=== PATIENT | female | born 1935 ===

== ENCOUNTER → 2016-08-11 | Outpatient (CLI) | payer MEDICARE, BC ==
--- NOTE | 2016-08-12 08:10 | BD ---
EXAMINATION TYPE: MG DEXA axial skeleton. DATE OF EXAM: 08/11/2016 COMPARISON: NONE CLINICAL HISTORY: Height: 60 IN Weight: 158 LBS FRAX RISK QUESTIONS: Alcohol (3 or more units per day): NO Family History (Parent hip fracture): NO Glucocorticoids (More than 3mos): NO (Ex: prednisone, prednisolone, methylprednisolone, dexamethasone, and hydrocortisone). History of Fracture in Adulthood: NO Secondary Osteoporosis: 1. Type 1 Diabetes: NO 2. Hyperthyroidism: NO 3. Menopause before 45: NO 4. Malnutrition: NO 5. Chronic liver disease: NO Rheumatoid Arthritis: NO Current Tobacco Use: NO RISK FACTORS HISTORY OF: Surgery to Hip(right): YES When: AGE 76 Active: YES Postmenopausal woman: AGE 48 Take estrogen and/or progesterone medications: NOT NOW How long: AGE 56-66 MEDICATIONS: Additional Medications: VIT CALCIUM, PREVACID, BABY ASPIRIN, BLOOD PRESSURE MEDS, CHOLESTEROL MEDS EXAM MEASUREMENTS: Bone mineral densitometry was performed using the [facility]. Bone mineral density as measured about the Lumbar spine is: ----- L1-L4(G/cm2): 1.185 T Score Values are as follows: ----- L2: 0.6 ----- L3: -0.4 ----- L4: -0.1 ----- L1-L4: 0.0 Bone mineral density has: Increased 3.5% since study of: 10/09/2009 PT HAD RT HIP REPLACEMENT AT AGE 76 Bone mineral density about the L hip (g/cm2): 0.896 T Score values are as follows: -----L Neck: -1.0 -----L Total: 0.0 Bone mineral density has: Increased 0.4% since study of: 10/09/2009 IMPRESSION: Normal (Values between +1 and -1 indicate normal bone mass). Consider repeating this study in 5 year s or sooner if there is some new clinical indication. Bone density within the lumbar spine is improved 3.5% from the comparison of 10/09/2009. Bone density within the left hip has improved 0.4% from the comparison of 2009 NOTE: T-SCORE=SD OF THE YOUNG ADULT MEAN.
--- NOTE | 2016-08-12 11:18 | MM ---
Reason for exam: screening (asymptomatic). Last mammogram was performed 1 year and 1 month ago. History: Patient is postmenopausal. Family history of breast cancer in mother at age 69. Took estrogen for 10 years beginning at age 57. Took progesterone for 10 years beginning at age 57. Physical Findings: A clinical breast exam by your physician is recommended on an annual basis and results should be correlated with mammographic findings. MG 3D Screening Mammo W/Cad Bilateral CC and MLO view(s) were taken. Prior study comparison: July 23, 2015, bilateral MG 3d screening mammo w/cad. There are scattered fibroglandular densities. No significant changes when compared with prior studies. ASSESSMENT: Benign, BI-RAD 2 RECOMMENDATION: Routine screening mammogram of both breasts in 1 year.
== END | disposition home or self-care (01) ==
LOC: RADMAMWWP 15:11
PROVIDERS: ATTEND Family Medicine
DX: Z12.31 Encounter for screening mammogram for malignant neoplasm of breast (principal); Z13.820 Encounter for screening for osteoporosis
CPT/HCPCS: 77080; 77063; G0202

== ENCOUNTER 2018-07-06 21:28 | Inpatient (IN) | payer BC, MEDICARE ==
[2018-07-06] MEDS ORDERED: IPRATROPIUM-ALBUTEROL 3 ML NEB INHALATION STA (22:14)
--- NOTE | 2018-07-06 22:19 | ED ---
URI HPI - General Chief Complaint: Upper Respiratory Infection Stated Complaint: SOB Time Seen by Provider: 07/06/18 21:54 Source: patient Mode of arrival: ambulatory - History of Present Illness Initial Comments: This patient is an 83-year-old woman who presents with complaint of having cough that is been going on for approximately one week. Patient states she started with some upper symptoms, including congestion and rhinorrhea. She also developed a nonproductive cough. Patient states she was seen in the clinic and started on amoxicillin. She did not have any improvement and therefore was seen in urgent care Wednesday, where they prescribed doxycycline and steroid. The patient has completed 24 hours of that without significant improvement in her condition. Patient has not had fever or chills. She is not having chest pain. There has only been some mild shortness of breath. Cough remains nonproductive. No change in urination. No leg pain or swelling. Patient denies history of COPD but she did have many years of secondhand smoke exposure. MD Complaint: cough, rhinorrhea Onset/Timin -: week(s) Consistency: constant Improves With: nothing Worsens With: nothing Associated Symptoms: rhinorrhea, cough, shortness of breath Treatments Prior to Arrival: "cold medicine", antibiotics - Related Data Home Medications Medication Instructions Recorded Confirmed Aspirin 81 mg PO DAILY 07/24/13 07/06/18 Atenolol 12.5 mg PO DAILY 07/24/13 07/06/18 Enalapril Maleate 2.5 mg PO DAILY 07/24/13 07/06/18 Lansoprazole 30 mg PO DAILY 07/24/13 07/06/18 Atorvastatin [Lipitor] 20 mg PO HS 08/13/15 07/06/18 Ascorbic Acid [Vitamin C with Elizabeth 100 mg PO DAILY 07/06/18 07/06/18 Hips] Benzonatate [Tessalon Perles] 100 mg PO TID 07/06/18 07/06/18 Calcium Carbonate/Vitamin D3 1 tab PO BID 07/06/18 07/06/18 [Calcium 500-Vit D3 200 Tablet] Doxycycline Hyclate [Vibramycin] 100 mg PO BID 07/06/18 07/06/18 Turmeric Root Extract [Turmeric] 1,053 mg PO DAILY 07/06/18 07/06/18 Zinc 50 mg PO DAILY 07/06/18 07/06/18 predniSONE 20 mg PO BID 07/06/18 07/06/18 Allergies Allergy/AdvReac Type Severity Reaction Status Date / Time nickel Allergy Rash/Hives Verified 07/06/18 21:53 Review of Systems ROS Statement: Those systems with pertinent positive or pertinent negative responses have been documented in the HPI. ROS Other: All systems not noted in ROS Statement are negative. Constitutional: Denies: fever, chills, weakness Respiratory: Reports: cough, dyspnea. Denies: hemoptysis Cardiovascular: Denies: chest pain, palpitations, dyspnea on exertion, orthopnea Gastrointestinal: Denies: abdominal pain, vomiting, diarrhea Genitourinary: Denies: dysuria, hematuria Musculoskeletal: Denies: back pain Skin: Denies: rash Neurological: Denies: headache, weakness, numbness Past Medical History Past Medical History: Diabetes Mellitus, Hyperlipidemia, Hypertension, Rick cardial Infarction ([place]) Additional Past Medical History / Comment(s): sinusitis History of Any Multi-Drug Resistant Organisms: None Reported Past Surgical History: Appendectomy, Hysterectomy, Orthopedic Surgery Additional Past Surgical History / Comment(s): right hip replacement Past Psychological History: No Psychological Hx Reported Past Alcohol Use History: Occasional - Past Family History Mother Family Medical History: Cancer Additional Family Medical History / Comment(s): breast Father Family Medical History: Asthma General Exam General appearance: alert, in no apparent distress Head exam: Present: atraumatic, normocephalic Eye exam: Present: normal appearance. Absent: scleral icterus, conjunctival injection ENT exam: Present: normal oropharynx Neck exam: Present: normal inspection Respiratory exam: Present: wheezes, other (Patient with frequent nonproductive cough during exam.). Absent: respiratory distress, rales, rhonchi, stridor, accessory muscle use, decreased breath sounds, prolonged expiratory Cardiovascular Exam: Present: regular rate, normal rhythm, normal heart sounds. Absent: systolic murmur, diastolic murmur, rubs, gallop GI/Abdominal exam: Present: soft. Absent: distended, tenderness, guarding, rebound, rigid, mass Extremities exam: Present: normal inspection, normal capillary refill. Absent: pedal edema, calf tenderness Back exam: Present: normal inspection Neurological exam: Present: alert Skin exam: Present: warm, dry, intact, normal color. Absent: rash Course Vital Signs 07/06/18 07/06/18 07/06/18 21:29 22:00 22:10 Temperature 98.1 F Pulse Rate 79 Respiratory 18 Rate Blood Pressure 155/87 174/79 O2 Sat by Pulse 96 96 96 Oximetry 07/06/18 07/06/18 07/06/18 23:00 23:04 23:10 Temperature Pulse Rate 63 Respiratory Rate Blood Pressure 157/66 146/67 O2 Sat by Pulse 92 L 99 Oximetry 07/06/18 07/06/18 07/06/18 23:11 23:20 23:40 Temperature Pulse Rate 63 Respiratory Rate Blood Pressure 144/76 150/71 O2 Sat by Pulse 92 L 90 L Oximetry 07/06/18 07/07/18 07/07/18 23:50 00:10 00:20 Temperature Pulse Rate 85 Respiratory 18 Rate Blood Pressure 147/65 145/75 161/81 O2 Sat by Pulse 98 86 L 93 L Oximetry 07/07/18 07/07/18 07/07/18 00:28 00:29 00:40 Temperature Pulse Rate 85 Respiratory Rate Blood Pressure 161/81 161/76 O2 Sat by Pulse 100 90 L Oximetry 07/07/18 07/07/18 01:00 01:10 Temperature Pulse Rate Respiratory Rate Blood Pressure 161/76 138/78 O2 Sat by Pulse 89 L 95 Oximetry Medical Decision Making - Medical Decision Making Patient is an 83-year-old woman presenting with cough and wheezing as well as some intermittent dyspnea. Clinically patient does appear to have bronchitis and there x-ray findings supportive of this. She does receive a number of nebulized treatments in the emergency department with some improvement though still having wheeze and some dyspnea. Will admit patient for further treatment of bronchitis with failed outpatient treatment. Subsequent additional history does reveal that patient has had some intermittent cough incontinence and a little bit of dysuria. The urinalysis reveals 12 white cells and will culture this to see if this represents infection versus white cells from the surface of the skin. - Lab Data Result diagrams: 07/09/18 08:40 07/09/18 08:40 Lab Results 07/06/18 07/06/18 07/06/18 Range/Units 22:49 22:49 22:49 WBC 8.7 (3.8-10.6) k/uL RBC 4.83 (3.80-5.40) m/uL Hgb 12.4 (11.4-16.0) gm/dL Hct 39.0 (34.0-46.0) % MCV 80.7 (80.0-100.0) fL MCH 25.6 (25.0-35.0) pg MCHC 31.7 (31.0-37.0) g/dL RDW 13.6 (11.5-15.5) % Plt Count 267 (150-450) k/uL Neutrophils % 85 % Lymphocytes % 10 % Monocytes % 4 % Eosinophils % 0 % Basophils % 0 % Neutrophils # 7.4 (1.3-7.7) k/uL Lymphocytes # 0.9 L (1.0-4.8) k/uL Monocytes # 0.3 (0-1.0) k/uL Eosinophils # 0.0 (0-0.7) k/uL Basophils # 0.0 (0-0.2) k/uL Sodium 134 L (137-145) mmol/L Potassium 3.4 L (3.5-5.1) mmol/L Chloride 99 (98-107) mmol/L Carbon Dioxide 23 (22-30) mmol/L Anion Gap 12 mmol/L BUN 21 H (7-17) mg/dL Creatinine 0.68 (0.52-1.04) mg/dL Est GFR (CKD-EPI)AfAm >90 (>60 ml/min/1.73 sqM) Est GFR (CKD-EPI)NonAf 82 (>60 ml/min/1.73 sqM) Glucose 411 H (74-99) mg/dL POC Glucose (mg/dL) (75-99) mg/dL POC Glu Bun Icer ID Calcium 9.8 (8.4-10.2) mg/dL Magnesium 1.6 (1.6-2.3) mg/dL Total Bilirubin 0.3 (0.2-1.3) mg/dL AST 22 (14-36) U/L ALT 21 (9-52) U/L Alkaline Phosphatase 182 H (38-126) U/L Troponin I (0.000-0.034) ng/mL NT-Pro-B Natriuret Pep pg/mL Total Protein 6.5 (6.3-8.2) g/dL Albumin 3.9 (3.5-5.0) g/dL Urine Color Urine Appearance (Clear) Urine pH (5.0-8.0) Ur Specific [place] (1.001-1.035) Urine Protein (Negative) Urine Glucose (UA) (Negative) Urine Ketones (Negative) Urine Blood (Negative) Urine Nitrite (Negative) Urine Bilirubin (Negative) Urine Urobilinogen (<2.0) mg/dL Ur Leukocyte Esterase (Negative) Urine WBC (0-5) /hpf Urine Bacteria (None) /hpf Urine Mucus (None) /hpf Influenza Type A RNA Not Detected (Not Detectd) Influenza Type B (PCR) Not Detected (Not Detectd) 07/06/18 07/06/18 07/07/18 Range/Units 22:49 22:49 00:28 WBC (3.8-10.6) k/uL RBC (3.80-5.40) m/uL Hgb (11.4-16.0) gm/dL Hct (34.0-46.0) % MCV (80.0-100.0) fL MCH (25.0-35.0) pg MCHC (31.0-37.0) g/dL RDW (11.5-15.5) % Plt Count (150-450) k/uL Neutrophils % % Lymphocytes % % Monocytes % % Eosinophils % % Basophils % % Neutrophils # (1.3-7.7) k/uL Lymphocytes # (1.0-4.8) k/uL Monocytes # (0-1.0) k/uL Eosinophils # (0-0.7) k/uL Basophils # (0-0.2) k/uL Sodium (137-145) mmol/L Potassium (3.5-5.1) mmol/L Chloride (98-107) mmol/L Carbon Dioxide (22-30) mmol/L Anion Gap mmol/L BUN (7-17) mg/dL Creatinine (0.52-1.04) mg/dL Est GFR (CKD-EPI)AfAm (>60 ml/min/1.73 sqM) Est GFR (CKD-EPI)NonAf (>60 ml/min/1.73 sqM) Glucose (74-99) mg/dL POC Glucose (mg/dL) (75-99) mg/dL POC Glu Bun Icer ID Calcium (8.4-10.2) mg/dL Magnesium (1.6-2.3) mg/dL Total Bilirubin (0.2-1.3) mg/dL AST (14-36) U/L ALT (9-52) U/L Alkaline Phosphatase (38-126) U/L Troponin I <0.012 (0.000-0.034) ng/mL NT-Pro-B Natriuret Pep 799 pg/mL Total Protein (6.3-8.2) g/dL Albumin (3.5-5.0) g/dL Urine Color Colorless Urine Appearance Clear (Clear) Urine pH 7.0 (5.0-8.0) Ur Specific [place] 1.011 (1.001-1.035) Urine Protein Negative (Negative) Urine Glucose (UA) 4+ H (Negative) Urine Ketones Negative (Negative) Urine Blood Small H (Negative) Urine Nitrite Negative (Negative) Urine Bilirubin Negative (Negative) Urine Urobilinogen <2.0 (<2.0) mg/dL Ur Leukocyte Esterase Negative (Negative) Urine WBC 12 H (0-5) /hpf Urine Bacteria Rare H (None) /hpf Urine Mucus Rare H (None) /hpf Influenza Type A RNA (Not Detectd) Influenza Type B (PCR) (Not Detectd) 07/07/18 Range/Units 01:26 WBC (3.8-10.6) k/uL RBC (3.80-5.40) m/uL Hgb (11.4-16.0) gm/dL Hct (34.0-46.0) % MCV (80.0-100.0) fL MCH (25.0-35.0) pg MCHC (31.0-37.0) g/dL RDW (11.5-15.5) % Plt Count (150-450) k/uL Neutrophils % % Lymphocytes % % Monocytes % % Eosinophils % % Basophils % % Neutrophils # (1.3-7.7) k/uL Lymphocytes # (1.0-4.8) k/uL Monocytes # (0-1.0) k/uL Eosinophils # (0-0.7) k/uL Basophils # (0-0.2) k/uL Sodium (137-145) mmol/L Potassium (3.5-5.1) mmol/L Chloride (98-107) mmol/L Carbon Dioxide (22-30) mmol/L Anion Gap mmol/L BUN (7-17) mg/dL Creatinine (0.52-1.04) mg/dL Est GFR (CKD-EPI)AfAm (>60 ml/min/1.73 sqM) Est GFR (CKD-EPI)NonAf (>60 ml/min/1.73 sqM) Glucose (74-99) mg/dL POC Glucose (mg/dL) 335 H (75-99) mg/dL POC Glu Bun Icer ID [place] Calcium (8.4-10.2) mg/dL Magnesium (1.6-2.3) mg/dL Total Bilirubin (0.2-1.3) mg/dL AST (14-36) U/L ALT (9-52) U/L Alkaline Phosphatase (38-126) U/L Troponin I (0.000-0.034) ng/mL NT-Pro-B Natriuret Pep pg/mL Total Protein (6.3-8.2) g/dL Albumin (3.5-5.0) g/dL Urine Color Urine Appearance (Clear) Urine pH (5.0-8.0) Ur Specific [place] (1.001-1.035) Urine Protein (Negative) Urine Glucose (UA) (Negative) Urine Ketones (Negative) Urine Blood (Negative) Urine Nitrite (Negative) Urine Bilirubin (Negative) Urine Urobilinogen (<2.0) mg/dL Ur Leukocyte Esterase (Negative) Urine WBC (0-5) /hpf Urine Bacteria (None) /hpf Urine Mucus (None) /hpf Influenza Type A RNA (Not Detectd) Influenza Type B (PCR) (Not Detectd) - EKG Data -: EKG Interpreted by Me EKG shows normal: sinus rhythm, axis (Normal), intervals (Normal), QRS complexes (Normal) Rate: normal (Rate 65 bpm) Interpretation: nonspecific ST-T wave changes Disposition Clinical Impression: Bronchitis, Hyperglycemia Disposition: ADMITTED IP TO THIS HOSP Condition: Good
--- NOTE | 2018-07-06 22:49 | XR ---
History: ITS.REASON XR Reason: difficulty breathing Exam: XR CXR 2 VIEWS Comparison: 07/24/2013 FINDINGS: Increased appearance of the perihilar markings may represent bronchitis. No focal consolidation or pleural effusion. The cardiac silhouette appears within limits. The visualized osseous structures appear within limits. IMPRESSION: Increased appearance of the perihilar markings may represent bronchitis. No focal consolidation or pleural effusion.
[2018-07-06 23:16] LABS: Basophils % (A) 0 %; Eosinophils % (A) 0 %; HGB 12.4 gm/dL (11.4-16.0); Lymphocytes # (A) 0.9 k/uL (1.0-4.8); Lymphocytes % (A) 10 %; MCH 25.6 pg (25.0-35.0); MCHC 31.7 g/dL (31.0-37.0); MCV 80.7 fL (80.0-100.0); Mean Platelet Volume 7.6; Monocytes # (A) 0.3 k/uL (0-1.0); Monocytes % (A) 4 %; Neutrophils # (A) 7.4 k/uL (1.3-7.7); Neutrophils % (A) 85 %; Platelet Count 267 k/uL (150-450); RBC 4.83 m/uL (3.80-5.40); RDW 13.6 % (11.5-15.5); WBC 8.7 k/uL (3.8-10.6)
[2018-07-06 23:18] LABS: ALT 21 U/L (9-52); AST 22 U/L (14-36); Albumin 3.9 g/dL (3.5-5.0); Alkaline Phosphatase 182 U/L (38-126); Anion Gap 12 mmol/L; Blood Urea Nitrogen 21 mg/dL (7-17); Calcium 9.8 mg/dL (8.4-10.2); Carbon Dioxide 23 mmol/L (22-30); Chloride 99 mmol/L (98-107); Glucose 411 mg/dL (74-99); Magnesium 1.6 mg/dL (1.6-2.3); Potassium 3.4 mmol/L (3.5-5.1); Sodium 134 mmol/L (137-145); Total Bilirubin 0.3 mg/dL (0.2-1.3); Total Protein 6.5 g/dL (6.3-8.2)
[2018-07-07] MEDS ORDERED: INSULIN REGULAR 100 UNIT/ML VIAL SQ STA (00:07)
[2018-07-07] MEDS ORDERED: SODIUM CHLORIDE 0.9% 1,000 ML IV ONE ×2 (00:09→02:15)
[2018-07-07] MEDS ORDERED: ALBUTEROL NEBULIZED 2.5 MG/3 ML INHALATION STA (00:15)
[2018-07-07 00:58] LABS: Appearance,Urine Clear (Clear); Bacteria,Urine Rare /hpf; Bilirubin,Urine Negative (Negative); Blood,Urine Small (Negative); Color,Urine Colorless; Glucose,Urine (UA) 4+ (Negative); Ketones,Urine Negative (Negative); Leukocyte Esterase,Urine Negative (Negative); Mucus,Urine Rare /hpf; Nitrite,Urine Negative (Negative); Protein,Urine Negative (Negative); Specific Gravity,Urine 1.011 (1.001-1.035); Urobilinogen,Urine <2.0 mg/dL (<2.0)
[2018-07-07 01:28] LABS: Glucose,Whole Blood 335 mg/dL (75-99)
[2018-07-07] MEDS ORDERED: ALBUTEROL NEBULIZED 2.5 MG/3 ML INHALATION PRN (02:09)
[2018-07-07 02:29] LABS: Glucose,Whole Blood 292 mg/dL (75-99)
[2018-07-07 07:11] LABS: Glucose,Whole Blood 126 mg/dL (75-99)
[2018-07-07] MEDS: INSULIN ASPART (NovoLOG) 100 UNIT/ML VIAL SQ SCH ×4 (07:59→23:28)
[2018-07-07] MEDS ORDERED: BUDESONIDE 0.5 MG/2 ML NEBU INHALATION SCH (08:00)
[2018-07-07] MEDS: BENZONATATE 100 MG CAP PO SCH ×3 (08:53→21:41)
[2018-07-07] MEDS: LISINOPRIL 2.5 MG TAB PO SCH (08:53)
[2018-07-07] MEDS: ASPIRIN 81 MG PO SCH (08:53)
[2018-07-07] MEDS: ATENOLOL 12.5 MG TAB PO SCH (08:53)
[2018-07-07] MEDS: CALCIUM CARB-VIT D 500MG-200UN 1 EACH TAB PO SCH ×2 (08:53→21:41)
[2018-07-07] MEDS: POTASSIUM CHLORIDE ER 20 MEQ TAB.ER PO SCH ×4 (08:53→13:33)
[2018-07-07] MEDS: PANTOPRAZOLE 40 MG TABLET PO SCH (08:53)
[2018-07-07] MEDS ORDERED: DOXYCYCLINE 100 MG CAP PO SCH (09:00)
[2018-07-07] MEDS ORDERED: predniSONE 20 MG TAB PO SCH (09:00)
[2018-07-07 09:24] LABS: Basophils % (A) 0 %; Eosinophils % (A) 0 %; HCT 39.3 % (34.0-46.0); HGB 12.3 gm/dL (11.4-16.0); Lymphocytes # (A) 2.7 k/uL (1.0-4.8); Lymphocytes % (A) 22 %; MCH 25.4 pg (25.0-35.0); MCHC 31.4 g/dL (31.0-37.0); MCV 81.1 fL (80.0-100.0); Mean Platelet Volume 7.3; Monocytes # (A) 0.6 k/uL (0-1.0); Monocytes % (A) 5 %; Neutrophils # (A) 8.7 k/uL (1.3-7.7); Neutrophils % (A) 72 %; Platelet Count 291 k/uL (150-450); RBC 4.84 m/uL (3.80-5.40); RDW 13.9 % (11.5-15.5); WBC 12.2 k/uL (3.8-10.6)
[2018-07-07] MEDS: IPRATROPIUM-ALBUTEROL 3 ML NEB INHALATION SCH ×4 (09:31→20:03)
[2018-07-07 09:44] LABS: ALT 22 U/L (9-52); AST 18 U/L (14-36); Albumin 3.5 g/dL (3.5-5.0); Alkaline Phosphatase 113 U/L (38-126); Anion Gap 10 mmol/L; Blood Urea Nitrogen 15 mg/dL (7-17); Calcium 9.5 mg/dL (8.4-10.2); Carbon Dioxide 27 mmol/L (22-30); Chloride 103 mmol/L (98-107); Glucose 152 mg/dL (74-99); Potassium 2.9 mmol/L (3.5-5.1); Sodium 140 mmol/L (137-145); Total Bilirubin 0.4 mg/dL (0.2-1.3); Total Protein 6.1 g/dL (6.3-8.2)
[2018-07-07] MEDS ORDERED: Potassium Replacement Protocol 1 EACH MISC MISCELLANE PRN (09:52)
[2018-07-07] MEDS ORDERED: IPRATROPIUM-ALBUTEROL 3 ML NEB INHALATION PRN (10:18)
--- NOTE | 2018-07-07 10:20 | P.HPIM ---
History of Present Illness H&P Date: 07/07/18 This is an 83-year-old female patient who presented with complaints of cough and congestion. Patient reports that symptoms started Wednesday or of last week. Patient was started on oral antibiotics with no improvement. Patient also received steroids outpatient with no improvement. Patient reports she was urged from her family to come to the ER for further evaluation. Patient does report she's had a nonproductive cough and sore throat. Patient denies any fevers. Patient denies any chest pain. Patient has past medical history of diabetes mellitus, hyperlipidemia, hypertension, myocardial infarction and right hip replacement. Chest x-ray completed showing increased appearance of perihilar markings may represent bronchitis. No focal consolidation or pleural effusion. EKG completed showing normal sinus rhythm. Nonspecific ST and T-wave abnormality. Patient started on oral doxycycline and prednisone. Patient also started on Breathing treatments. Patient's blood sugar elevated in the 400s on admission. Hemoglobin A1c has been ordered. Patient started on sliding scale coverage. Pulmonary services have been consulted. At this time patient states she feels extremely improved with breathing. Patient denies chest pain. Patient denies nausea vomiting or diarrhea. Patient denies any urinary burning or frequency. Review of Systems Please refer to HPI otherwise unremarkable Past Medical History Past Medical History: Diabetes Mellitus, Hyperlipidemia, Hypertension, Myocardial Infarction ([place]) Additional Past Medical History / Comment(s): sinusitis Last Myocardial Infarction Date:: 1997 History of Any Multi-Drug Resistant Organisms: None Reported Past Surgical History: Appendectomy, Hysterectomy, Orthopedic Surgery Additional Past Surgical History / Comment(s): right hip replacement Past Anesthesia/Blood Transfusion Reactions: No Reported Reaction Past Psychological History: No Psychological Hx Reported Smoking Status: Never smoker Past Alcohol Use History: Occasional Past Drug Use History: None Reported - Past Family History Mother Family Medical History: Cancer Additional Family Medical History / Comment(s): breast Father Family Medical History: Asthma Medications and Allergies Home Medications Medication Instructions Recorded Confirmed Type Aspirin 81 mg PO DAILY 07/24/13 07/06/18 History Atenolol 12.5 mg PO DAILY 07/24/13 07/06/18 History Enalapril Maleate 2.5 mg PO DAILY 07/24/13 07/06/18 History Lansoprazole 30 mg PO DAILY 07/24/13 07/06/18 History Atorvastatin [Lipitor] 20 mg PO HS 08/13/15 07/06/18 History Ascorbic Acid [Vitamin C with Elizabeth 100 mg PO DAILY 07/06/18 07/06/18 History Hips] Benzonatate [Tessalon Perles] 100 mg PO TID 07/06/18 07/06/18 History Calcium Carbonate/Vitamin D3 1 tab PO BID 07/06/18 07/06/18 History [Calcium 500-Vit D3 200 Tablet] Doxycycline Hyclate [Vibramycin] 100 mg PO BID 07/06/18 07/06/18 History Turmeric Root Extract [Turmeric] 1,053 mg PO DAILY 07/06/18 07/06/18 History Zinc 50 mg PO DAILY 07/06/18 07/06/18 History predniSONE 20 mg PO BID 07/06/18 07/06/18 History Allergies Allergy/AdvReac Type Severity Reaction Status Date / Time nickel Allergy Rash/Hives Verified 07/06/18 21:53 Physical Exam Vitals: Vital Signs Temp Pulse Pulse Resp BP BP Pulse Ox 07/07/18 09:46 76 07/07/18 09:32 72 07/07/18 04:50 97.9 F 73 20 183/84 98 07/07/18 03:10 97.9 F 69 20 162/68 99 07/07/18 02:59 98.0 F 88 17 138/72 97 07/07/18 01:10 138/78 95 07/07/18 01:00 161/76 89 L 07/07/18 00:40 161/76 90 L 07/07/18 00:29 85 07/07/18 00:28 161/81 100 07/07/18 00:20 85 18 161/81 93 L 07/07/18 00:10 145/75 86 L 07/06/18 23:50 147/65 98 07/06/18 23:40 150/71 90 L 07/06/18 23:20 144/76 92 L 07/06/18 23:11 63 07/06/18 23:10 146/67 99 07/06/18 23:04 63 07/06/18 23:00 157/66 92 L 07/06/18 22:10 174/79 96 07/06/18 22:00 96 07/06/18 21:29 98.1 F 79 18 155/87 96 Intake and Output 07/06/18 07/07/18 07/07/18 22:59 06:59 14:59 Other: # Voids 2 Weight 63.503 kg Head normocephalic Neck supple Lungs right lower lobe expiratory wheezing Heart regular rate and rhythm S1-S2, no rub or gallop Abdomen is soft nontender nondistended positive bowel sounds no hepatosplenomegaly Extremities no edema Neuro alert and orientated to 3 Results CBC & Chem 7: 07/07/18 08:38 07/07/18 08:38 Labs: Abnormal Lab Results - Last 24 Hours (Table) 07/06/18 07/06/18 07/07/18 Range/Units 22:49 22:49 00:28 WBC (3.8-10.6) k/uL Neutrophils # (1.3-7.7) k/uL Lymphocytes # 0.9 L (1.0-4.8) k/uL Sodium 134 L (137-145) mmol/L Potassium 3.4 L (3.5-5.1) mmol/L BUN 21 H (7-17) mg/dL Glucose 411 H (74-99) mg/dL POC Glucose (mg/dL) (75-99) mg/dL Alkaline Phosphatase 182 H (38-126) U/L Total Protein (6.3-8.2) g/dL Urine Glucose (UA) 4+ H (Negative) Urine Blood Small H (Negative) Urine WBC 12 H (0-5) /hpf Urine Bacteria Rare H (None) /hpf Urine Mucus Rare H (None) /hpf 07/07/18 07/07/18 07/07/18 Range/Units 01:26 02:27 07:09 WBC (3.8-10.6) k/uL Neutrophils # (1.3-7.7) k/uL Lymphocytes # (1.0-4.8) k/uL Sodium (137-145) mmol/L Potassium (3.5-5.1) mmol/L BUN (7-17) mg/dL Glucose (74-99) mg/dL POC Glucose (mg/dL) 335 H 292 H 126 H (75-99) mg/dL Alkaline Phosphatase (38-126) U/L Total Protein (6.3-8.2) g/dL Urine Glucose (UA) (Negative) Urine Blood (Negative) Urine WBC (0-5) /hpf Urine Bacteria (None) /hpf Urine Mucus (None) /hpf 07/07/18 07/07/18 Range/Units 08:38 08:38 WBC 12.2 H (3.8-10.6) k/uL Neutrophils # 8.7 H (1.3-7.7) k/uL Lymphocytes # (1.0-4.8) k/uL Sodium (137-145) mmol/L Potassium 2.9 L (3.5-5.1) mmol/L BUN (7-17) mg/dL Glucose 152 H (74-99) mg/dL POC Glucose (mg/dL) (75-99) mg/dL Alkaline Phosphatase (38-126) U/L Total Protein 6.1 L (6.3-8.2) g/dL Urine Glucose (UA) (Negative) Urine Blood (Negative) Urine WBC (0-5) /hpf Urine Bacteria (None) /hpf Urine Mucus (None) /hpf Thrombosis Risk Factor Assmnt - Choose All That Apply Any of the Below Risk Factors Present?: No Other Risk Factors: No Each Risk Factor Represents 3 Points: Age 75 years or older Thrombosis Risk Factor Assessment Total Risk Factor Score: 3 Thrombosis Risk Factor Assessment Level: Very Low Risk Assessment and Plan Assessment: 1. Bronchitis. Chest x-ray completed showing increased appearance of the perihilar markings may represent bronchitis. No focal consolidation or pleural effusion. Patient started on breathing treatments. Patient maintained on predn isone and doxycycline. Pulmonary services have been consulted. Sputum culture has been ordered. 2. Diabetes mellitus type 2. Patient's blood sugar upon arrival 400. Patient not currently on any oral agents. Patient reports she had been on metformin the past but had stomach issues and it was DC'd per PCP and will order hemoglobin A1c. At this time patient maintained on sliding scale insulin. 3. Essential hypertension 4. History of hyperlipidemia 5. History of myocardial infarction 6. Hypokalemia potassium 2.9. Replace per protocol and recheck today at 1600 DVT prophylaxis heparin. GI prophylaxis Protonix Time with Patient: Greater than 30 (Greater than 60% of the total time spent in counseling and coordination of care. I performed an examination of the patient and discussed their management with the Nurse Practitioner. I have reviewed the Nurse Practitioner's notes and agree with the documented findings and plan of care)
[2018-07-07] MEDS: methylPREDNISolone SOD SUCCI 125 MG/2 ML VIAL IV SCH ×3 (10:59→23:29)
[2018-07-07 11:43] LABS: Glucose,Whole Blood 193 mg/dL (75-99)
[2018-07-07] MEDS: AZITHROMYCIN 500 MG TAB PO SCH (12:39)
--- NOTE | 2018-07-07 13:19 | CONS ---
CONSULTATION PULMONARY/CRITICAL CARE CONSULTATION: DATE OF CONSULTATION: July 07, 2018 This is for acute bronchitis with bronchospasm. This is an 83-year-old Amhar[place] woman who presents with complaints of cough. She has not been feeling well for at least a week and maybe longer. She apparently went to her doctor and initially received some antibiotics. She went back because she was not feeling any better and received some steroids. Her symptoms include chest tightness, wheezing, cough and occasional congestion with phlegm production. The phlegm is not a lot in quantity. No fever or chills. She just feels tight in her chest. She states that she coughs so much that it is hurting abdominal musculature. Anyway, she was admitted with a diagnosis of failing outpatient therapy for acute bronchitis. Chest x- ray really did not reveal any abnormalities. She is a lifelong nonsmoker. She has had this once before many years back. She has no history of any lung disorders including asthma, emphysema, chronic bronchitis, COPD, etc. MEDICATIONS: Her current medications at home include aspirin, atenolol, enalapril, lansoprazole, Lipitor, ascorbic acid, Tessalon Perles, calcium with vitamin D3, doxycycline, prednisone 20 mg twice a day, zinc and turmeric extract. ALLERGIES: Allergies are NICKEL. MEDICAL HISTORY: Her medical history includes diabetes mellitus, hyperlipidemia, hypertension, previous myocardial infarction, chronic sinus disease. She denies history of any lung disease. SURGICAL HISTORY: Surgical history includes previous appendectomy, hysterectomy and orthopedic surgery include right hip replacement. SOCIAL HISTORY: Significant is that she is a lifelong nonsmoker. She does not drink or use any illicit drugs. FAMILY HISTORY: Noncontributory. OCCUPATION HISTORY: Noncontributory. REVIEW OF SYSTEMS: CONSTITUTIONAL: Negative. NEUROLOGIC: Negative. HEENT: Negative. CARDIOVASCULAR: Negative. PULMONARY: Chest congestion, cough, wheezing, chest tightness, shortness of breath and minimal phlegm production. GI: Negative. : Negative. RHEUMATOLOGIC: Negative. IMMUNOLOGIC: Negative. ENDOCRINOLOGIC: Negative. DERMATOLOGIC: Negative. PHYSICAL EXAMINATION: Current vital signs are reviewed. Temperature 97.9, heart rate 73, respiratory rate 20, blood pressure 183/84, mean 117 and room air saturation 98%. Appears in no acute distress. HEENT: Examination is grossly unremarkable. Mucous membranes are moist. She is not wearing any nasal O2. NECK: Supple. Full range of motion. No adenopathy, thyromegaly or neck vein distention. CARDIOVASCULAR: Examination reveals regular rhythm and rate. Heart rate 73. S1, S2 normal. There is no murmur. LUNGS: Reveal significant bronchospasm. She has got bilateral wheezes. There is coarse bilateral rhonchi. She coughs and wheezes on forced maneuver. Adventitious lung sounds are more prominent on forced maneuver. Breath sounds are equal bilaterally. ABDOMEN: Soft. Bowel sounds are heard. EXTREMITIES: Are intact. No cyanosis, clubbing, or edema. SKIN: Without rash. NEUROLOGIC: Examination is brief but nonfocal. Lab data is reviewed. White count 12.2. Hemoglobin, hematocrit and platelet count all normal. Sodium 140, potassium 2.9, chloride 103, CO2 of 27, anion gap is 10, BUN and creatinine were 15 and 0.6. The rest of the labs are reviewed. The urine is essentially negative. Influenza studies were negative. Currently, the patient's chest x-ray shows changes of mild bronchitis. Medications are reviewed. Those will be reviewed extensively. ASSESSMENT: 1. Acute bronchitis with bronchial inflammation and acute bronchospasm failing outpatient therapy. 2. Diabetes mellitus. 3. Hyperlipidemia. 4. History of hypertension. 5. Previous history of myocardial infarction. 6. History of acute sinusitis. PLAN: The patient will be placed on appropriate medications including bronchodilator, steroids and some oral antibiotics. I expect a quick turnaround. Hopefully in the next day or so she will be able to be discharged. No additional recommendations are made. We will continue to follow. Chest x-ray is very unimpressive. MMODL / IJN: [id number] /
[2018-07-07] MEDS: PROMETHAZ-COD 6.25-10 MG/5 ML 5 ML CUP PO PRN (16:03)
[2018-07-07 16:37] LABS: Hemoglobin A1C 8.5 % (4.0-6.0)
[2018-07-07 17:23] LABS: Glucose,Whole Blood 308 mg/dL (75-99)
[2018-07-07] MEDS: FORMOTEROL FUMARATE 20 MCG/2 ML NEBU INHALATION SCH (20:03)
[2018-07-07] MEDS: BUDESONIDE 1 MG/2 ML NEBU INHALATION SCH (20:03)
[2018-07-07 21:14] LABS: Glucose,Whole Blood 350 mg/dL (75-99)
[2018-07-07] MEDS: ATORVASTATIN 20 MG TAB PO SCH (21:41)
[2018-07-07] MEDS: HEPARIN SODIUM,PORCINE 5,000 UNIT/ML 1 ML VIAL SQ SCH (21:41)
[2018-07-08] MEDS: methylPREDNISolone SOD SUCCI 125 MG/2 ML VIAL IV SCH ×4 (05:17→23:51)
[2018-07-08 07:12] LABS: Glucose,Whole Blood 249 mg/dL (75-99)
[2018-07-08] MEDS: PROMETHAZ-COD 6.25-10 MG/5 ML 5 ML CUP PO PRN (08:01)
[2018-07-08] MEDS: LISINOPRIL 2.5 MG TAB PO SCH (08:01)
[2018-07-08] MEDS: BENZONATATE 100 MG CAP PO SCH ×3 (08:01→21:25)
[2018-07-08] MEDS: HEPARIN SODIUM,PORCINE 5,000 UNIT/ML 1 ML VIAL SQ SCH ×2 (08:01→21:25)
[2018-07-08] MEDS: ASPIRIN 81 MG PO SCH (08:02)
[2018-07-08] MEDS: CALCIUM CARB-VIT D 500MG-200UN 1 EACH TAB PO SCH ×2 (08:02→21:25)
[2018-07-08] MEDS: POTASSIUM CHLORIDE ER 20 MEQ TAB.ER PO SCH (08:02)
[2018-07-08] MEDS: PANTOPRAZOLE 40 MG TABLET PO SCH (08:02)
[2018-07-08] MEDS: INSULIN ASPART (NovoLOG) 100 UNIT/ML VIAL SQ SCH ×4 (08:35→21:34)
[2018-07-08] MEDS: IPRATROPIUM-ALBUTEROL 3 ML NEB INHALATION SCH ×4 (08:50→20:26)
[2018-07-08] MEDS: FORMOTEROL FUMARATE 20 MCG/2 ML NEBU INHALATION SCH ×2 (08:50→20:26)
[2018-07-08] MEDS: BUDESONIDE 1 MG/2 ML NEBU INHALATION SCH ×2 (08:50→20:26)
[2018-07-08] MEDS ORDERED: AZITHROMYCIN 500 MG in SODIUM CHLORIDE 0.9% 250 ML IVPB SCH (09:00)
[2018-07-08 09:46] LABS: Basophils % (A) 0 %; Eosinophils % (A) 0 %; HGB 12.4 gm/dL (11.4-16.0); Hypochromasia Slight; Lymphocytes # (A) 1.1 k/uL (1.0-4.8); Lymphocytes % (A) 7 %; MCH 25.2 pg (25.0-35.0); MCHC 30.9 g/dL (31.0-37.0); MCV 81.4 fL (80.0-100.0); Mean Platelet Volume 7.5; Monocytes # (A) 0.2 k/uL (0-1.0); Monocytes % (A) 1 %; Neutrophils # (A) 13.8 k/uL (1.3-7.7); Neutrophils % (A) 91 %; Platelet Count 275 k/uL (150-450); RBC 4.91 m/uL (3.80-5.40); RDW 13.6 % (11.5-15.5); WBC 15.2 k/uL (3.8-10.6)
--- NOTE | 2018-07-08 09:50 | P.PN ---
Subjective Progress Note Date: 07/08/18 This is an 83-year-old female patient who presented with complaints of cough and congestion. Patient reports that symptoms started Wednesday or of last week. Patient was started on oral antibiotics with no improvement. Patient also received steroids outpatient with no improvement. Patient reports she was urged from her family to come to the ER for further evaluation. Patient does report she's had a nonproductive cough and sore throat. Patient denies any fevers. Patient denies any chest pain. Patient has past medical history of diabetes mellitus, hyperlipidemia, hypertension, myocardial infarction and right hip replacement. Chest x-ray completed showing increased appearance of per ihilar markings may represent bronchitis. No focal consolidation or pleural effusion. EKG completed showing normal sinus rhythm. Nonspecific ST and T-wave abnormality. Patient started on oral doxycycline and prednisone. Patient also started on Breathing treatments. Patient's blood sugar elevated in the 400s on admission. Hemoglobin A1c has been ordered. Patient started on sliding scale coverage. Pulmonary services have been consulted. At this time patient states she feels extremely improved with breathing. Patient denies chest pain. Patient denies nausea vomiting or diarrhea. Patient denies any urinary burning or frequency. On 07/08/2018 patient is alert and oriented 3. Patient does have some improvement but still remains with expiratory wheezing. Discussed with pulmonary service is recommending patient. Patients blood sugars also elevated. Lantus 5 units has been added along with sliding scale insulin. At this time patient denies chest pain. Patient denies nausea vomiting or diarrhea. Patient denies any urinary burning or frequency. Objective - Vital Signs Vital signs: Vital Signs Temp 98.1 F 07/08/18 07:00 Pulse 94 07/08/18 09:11 Resp 14 07/08/18 07:00 BP 158/78 07/08/18 07:00 Pulse Ox 94 L 07/08/18 07:00 Intake & Output 07/07/18 07/08/18 07/08/18 18:59 06:59 18:59 Intake Total 300 250 236 Balance 300 250 236 Intake: IV 300 Azithromycin 500 mg In 250 Sodium Chloride 0.9% 250 ml @ 250 mls/hr IVPB DAILY [facility] Rx#:[id number] cefTRIAXone 1 gm In 50 Sodium Chloride 0.9% 50 ml @ 100 mls/hr IVPB Q24HR [facility] Rx#:[id number] Oral 250 236 Other: Voiding Method Toilet # Voids 2 1 - Exam Head normocephalic Neck supple Lungs right lower lobe expiratory wheezing Heart regular rate and rhythm S1-S2, no rub or gallop Abdomen is soft nontender nondistended positive bowel sounds no hepatosplenomegaly Extremities no edema Neuro alert and orientated to 3 - Labs CBC & Chem 7: 07/07/18 08:38 07/07/18 15:48 Labs: Abnormal Lab Results - Last 24 Hours (Table) 07/07/18 07/07/18 07/07/18 Range/Units 08:38 11:40 17:20 POC Glucose (mg/dL) 193 H 308 H (75-99) mg/dL Hemoglobin A1c 8.5 H (4.0-6.0) % 07/07/18 07/08/18 Range/Units 21:12 07:11 POC Glucose (mg/dL) 350 H 249 H (75-99) mg/dL Hemoglobin A1c (4.0-6.0) % Microbiology - Last 24 Hours (Table) 07/07/18 00:28 Urine Culture - Preliminary Urine,Voided Assessment and Plan Assessment: 1. Bronchitis. Chest x-ray completed showing increased appearance of the perihilar markings may represent bronchitis. No focal consolidation or pleural effusion. Patient started on breathing treatments. Sputum culture has been ordered. Mucinex added. Antibiotics per pulmonary azithromycin and IV steroids at this time 2. Diabetes mellitus type 2. Patient's blood sugar upon arrival 400. Patient not currently on any oral agents. Patient reports she had been on metformin the past but had stomach issues and it was DC'd per PCP and will order hemoglobin A1c. At this time patient maintained on sliding scale insulin. Humulin A1c 8.5. Lantus 5 units has been added 3. Essential hypertension 4. History of hyperlipidemia 5. History of myocardial infarction 6. Hypokalemia potassium 2.9. Resolved DVT prophylaxis heparin. GI prophylaxis Protonix Anticipate discharge in the next 24-48 hours I performed an examination of the patient and discussed their management with the Nurse Practitioner. I have reviewed the Nurse Practitioner's notes and agree with the documented findings and plan of care
[2018-07-08] MEDS: INSULIN DETEMIR (LEVEMIR) 100 UNIT/ML SYR SQ SCH (10:08)
[2018-07-08] MEDS: ATENOLOL 12.5 MG TAB PO SCH (10:08)
[2018-07-08 10:09] LABS: ALT 22 U/L (9-52); AST 19 U/L (14-36); Albumin 3.6 g/dL (3.5-5.0); Alkaline Phosphatase 150 U/L (38-126); Anion Gap 12 mmol/L; Blood Urea Nitrogen 20 mg/dL (7-17); Calcium 10.3 mg/dL (8.4-10.2); Carbon Dioxide 22 mmol/L (22-30); Chloride 100 mmol/L (98-107); Glucose 380 mg/dL (74-99); Potassium 4.4 mmol/L (3.5-5.1); Sodium 134 mmol/L (137-145); Total Bilirubin 0.5 mg/dL (0.2-1.3); Total Protein 6.1 g/dL (6.3-8.2)
[2018-07-08] MEDS: AZITHROMYCIN 500 MG TAB PO SCH (10:49)
[2018-07-08 11:37] LABS: Glucose,Whole Blood 255 mg/dL (75-99)
--- NOTE | 2018-07-08 12:04 | P.PN ---
Subjective Progress Note Date: 07/08/18 Principal diagnosis: Acute bronchitis, with bronchial inflammation and acute bronchospasm failure of outpatient treatment On 07/08/2018 patient seen in follow-up on the medical surgical floor. She is awake and alert, no acute distress, still dyspneic, and bronchospastic, not q uite back to baseline, she is on steroids, neb last bronchodilators, Pulmicort, Perforomist, And a oral antibiotic, room air pulse ox is 94%, vital signs are stable. Slightly improved, will need an 24 hours of inpatient treatment Objective - Vital Signs Vital signs: Vital Signs Temp 98.1 F 07/08/18 07:00 Pulse 90 07/08/18 11:19 Resp 16 07/08/18 08:00 BP 158/78 07/08/18 07:00 Pulse Ox 94 L 07/08/18 07:00 Intake & Output 07/07/18 07/08/18 07/08/18 18:59 06:59 18:59 Intake Total 300 250 236 Balance 300 250 236 Intake: IV 300 Azithromycin 500 mg In 250 Sodium Chloride 0.9% 250 ml @ 250 mls/hr IVPB DAILY [facility] Rx#:[id number] cefTRIAXone 1 gm In 50 Sodium Chloride 0.9% 50 ml @ 100 mls/hr IVPB Q24HR [facility] Rx#:[id number] Oral 250 236 Other: Voiding Method Toilet Toilet # Voids 2 1 - Exam GENERAL EXAM: Alert, pleasant, 83-year-old white female, comfortable in no apparent distress. HEAD: Normocephalic/atraumatic. EYES: Normal reaction of pupils, equal size. Conjunctiva pink, sclera white. NOSE: Clear with pink turbinates. THROAT: No erythema or exudates. NECK: No masses, no JVD, no thyroid enlargement, no adenopathy. CHEST: No chest wall deformity. Symmetrical expansion. LUNGS: Equal air entry with expiratory wheezes CVS: Regular rate and rhythm, normal S1 and S2, no gallops, no murmurs, no rubs ABDOMEN: Soft, nontender. No hepatosplenomegaly, normal bowel sounds, no guarding or rigidity. EXTREMITIES: No clubbing, no edema, no cyanosis, 2+ pulses and upper and lower extremities. MUSCULOSKELETAL: Muscle strength and tone normal. SPINE: No scoliosis or deformity SKIN: No rashes CENTRAL NERVOUS SYSTEM: Alert and oriented -3. No focal deficits, tone is n ormal in all 4 extremities. PSYCHIATRIC: Alert and oriented -3. Appropriate affect. Intact judgment and insight. - Labs CBC & Chem 7: 07/08/18 09:02 07/08/18 09:02 Labs: Abnormal Lab Results - Last 24 Hours (Table) 07/07/18 07/07/18 07/07/18 Range/Units 08:38 17:20 21:12 WBC (3.8-10.6) k/uL MCHC (31.0-37.0) g/dL Neutrophils # (1.3-7.7) k/uL Sodium (137-145) mmol/L BUN (7-17) mg/dL Glucose (74-99) mg/dL POC Glucose (mg/dL) 308 H 350 H (75-99) mg/dL Hemoglobin A1c 8.5 H (4.0-6.0) % Calcium (8.4-10.2) mg/dL Alkaline Phosphatase (38-126) U/L Total Protein (6.3-8.2) g/dL 07/08/18 07/08/18 07/08/18 Range/Units 07:11 09:02 09:02 WBC 15.2 H (3.8-10.6) k/uL MCHC 30.9 L (31.0-37.0) g/dL Neutrophils # 13.8 H (1.3-7.7) k/uL Sodium 134 L (137-145) mmol/L BUN 20 H (7-17) mg/dL Glucose 380 H (74-99) mg/dL POC Glucose (mg/dL) 249 H (75-99) mg/dL Hemoglobin A1c (4.0-6.0) % Calcium 10.3 H (8.4-10.2) mg/dL Alkaline Phosphatase 150 H (38-126) U/L Total Protein 6.1 L (6.3-8.2) g/dL 07/08/18 Range/Units 11:36 WBC (3.8-10.6) k/uL MCHC (31.0-37.0) g/dL Neutrophils # (1.3-7.7) k/uL Sodium (137-145) mmol/L BUN (7-17) mg/dL Glucose (74-99) mg/dL POC Glucose (mg/dL) 255 H (75-99) mg/dL Hemoglobin A1c (4.0-6.0) % Calcium (8.4-10.2) mg/dL Alkaline Phosphatase (38-126) U/L Total Protein (6.3-8.2) g/dL Microbiology - Last 24 Hours (Table) 07/07/18 00:28 Urine Culture - Preliminary Urine,Voided Assessment and Plan Plan: Assessment: #1. Acute bronchitis with bronchial inflammation and acute bronchospasm with failure of outpatient treatment #2. Diabetes mellitus Type II #3. Hypertension #4. Hyperlipidemia #5. Previous history of myocardial infarction #6. History of acute sinusitis Plan: We'll continue current medical treatment, IV steroids, nebulized bronchodilators, Pulmicort, Perforomist and oral antibiotics, improving, but still wheezy and dyspneic, will need another 24 hours of inpatient treatment. I performed a history & physical examination of the patient and discussed their management with my nurse practitioner, Kamilah Pena. I reviewed the nurse practitioner's note and agree with the documented findings and plan of care. Lung sounds are positive for diffuse wheezes. The findings and the impression was discussed with the patient. I attest to the documentation by the nurse joanne bloom. Time with Patient: Less than 30
[2018-07-08] MEDS: PIOGLITAZONE 30 MG TAB PO SCH (12:07)
[2018-07-08 16:49] LABS: Glucose,Whole Blood 198 mg/dL (75-99)
[2018-07-08 21:24] LABS: Glucose,Whole Blood 338 mg/dL (75-99)
[2018-07-08] MEDS: guaiFENesin 600 MG TABLET.ER PO PRN (21:25)
[2018-07-08] MEDS: ATORVASTATIN 20 MG TAB PO SCH (21:25)
[2018-07-08] MEDS ORDERED: INSULIN ASPART (NovoLOG) 100 UNIT/ML VIAL SQ ONE (22:30)
[2018-07-08 22:34] LABS: Glucose,Whole Blood 323 mg/dL (75-99)
[2018-07-09] MEDS: methylPREDNISolone SOD SUCCI 125 MG/2 ML VIAL IV SCH ×2 (05:43→11:40)
[2018-07-09 07:13] LABS: Glucose,Whole Blood 201 mg/dL (75-99)
[2018-07-09] MEDS: INSULIN ASPART (NovoLOG) 100 UNIT/ML VIAL SQ SCH ×4 (08:17→21:22)
[2018-07-09] MEDS: ATENOLOL 12.5 MG TAB PO SCH (08:18)
[2018-07-09] MEDS: LISINOPRIL 2.5 MG TAB PO SCH (08:18)
[2018-07-09] MEDS: PANTOPRAZOLE 40 MG TABLET PO SCH (08:18)
[2018-07-09] MEDS: PIOGLITAZONE 30 MG TAB PO SCH (08:18)
[2018-07-09] MEDS: AZITHROMYCIN 500 MG TAB PO SCH (08:18)
[2018-07-09] MEDS: CALCIUM CARB-VIT D 500MG-200UN 1 EACH TAB PO SCH ×2 (08:18→21:20)
[2018-07-09] MEDS: ASPIRIN 81 MG PO SCH (08:18)
[2018-07-09] MEDS: BENZONATATE 100 MG CAP PO SCH ×2 (08:18→17:00)
[2018-07-09] MEDS: guaiFENesin 600 MG TABLET.ER PO PRN (08:19)
[2018-07-09] MEDS: HEPARIN SODIUM,PORCINE 5,000 UNIT/ML 1 ML VIAL SQ SCH ×2 (08:19→21:20)
[2018-07-09 09:03] LABS: Basophils % (A) 0 %; Eosinophils % (A) 0 %; HCT 44.9 % (34.0-46.0); HGB 13.7 gm/dL (11.4-16.0); Hypochromasia Slight; Lymphocytes # (A) 0.8 k/uL (1.0-4.8); Lymphocytes % (A) 3 %; MCH 25.4 pg (25.0-35.0); MCHC 30.6 g/dL (31.0-37.0); MCV 83.1 fL (80.0-100.0); Mean Platelet Volume 7.1; Monocytes # (A) 0.4 k/uL (0-1.0); Monocytes % (A) 1 %; Neutrophils # (A) 24.6 k/uL (1.3-7.7); Neutrophils % (A) 95 %; Platelet Count 400 k/uL (150-450); RBC 5.39 m/uL (3.80-5.40); RDW 14.1 % (11.5-15.5); WBC 25.8 k/uL (3.8-10.6)
[2018-07-09 09:13] LABS: Calcium 10.7 mg/dL (8.4-10.2); Potassium 4.6 mmol/L (3.5-5.1); Total Bilirubin 0.6 mg/dL (0.2-1.3); Total Protein 6.6 g/dL (6.3-8.2)
[2018-07-09] MEDS: IPRATROPIUM-ALBUTEROL 3 ML NEB INHALATION SCH ×4 (09:14→19:50)
[2018-07-09] MEDS: FORMOTEROL FUMARATE 20 MCG/2 ML NEBU INHALATION SCH ×2 (09:14→19:50)
[2018-07-09] MEDS: BUDESONIDE 1 MG/2 ML NEBU INHALATION SCH ×2 (09:14→19:50)
[2018-07-09] MEDS: POTASSIUM CHLORIDE ER 20 MEQ TAB.ER PO SCH (11:40)
[2018-07-09] MEDS: INSULIN DETEMIR (LEVEMIR) 100 UNIT/ML SYR SQ SCH (11:40)
[2018-07-09 11:44] LABS: Glucose,Whole Blood 323 mg/dL (75-99)
--- NOTE | 2018-07-09 12:49 | P.PN ---
Subjective Progress Note Date: 07/09/18 Principal diagnosis: Acute bronchitis with bronchial inflammation and acute bronchospasm. Failed outpatient treatment. The patient is seen today 07/09/2018 in follow-up on the regular medical floor. She is currently sitting up in a chair at the bedside. Awake and alert in no acute distress. Still not quite back to her baseline. Still with a dry nonproductive cough. Dyspnea on exertion, bronchospastic and wheezing. Urine culture positive for Proteus mirabilis. White count 25.8. Hemoglobin 13.7. Creatinine 0.79. She is currently on DuoNeb inhalations, Pulmicort and Perforomist inhalations, IV Solu-Medrol, Tessalon Perles and antibiotics in the form of ceftriaxone. Objective - Vital Signs Vital signs: Vital Signs Temp 98.5 F 07/09/18 07:20 Pulse 84 07/09/18 12:20 Resp 16 07/09/18 07:20 BP 168/84 07/09/18 07:20 Pulse Ox 94 L 07/09/18 07:20 Intake & Output 07/08/18 07/09/18 07/09/18 18:59 06:59 18:59 Intake Total 868 Balance 868 Intake: Oral 868 Other: Voiding Method Toilet Toilet Toilet # Voids 1 2 - Exam GENERAL EXAM: Alert, active, comfortable in no apparent distress. On room air. HEAD: Normocephalic. EYES: Normal reaction of pupils, equal size. NOSE: Clear with pink turbinates. THROAT: No erythema or exudates. NECK: No masses, no JVD. CHEST: No chest wall deformity. LUNGS: Equal air entry with bilateral end expiratory wheeze. CVS: S1 and S2 normal with no audible murmur, regular rhythm. ABDOMEN: No hepatosplenomegaly, normal bowel sounds, no guarding or rigidity. SPINE: No scoliosis or deformity SKIN: No rashes CENTRAL NERVOUS SYSTEM: No focal deficits, tone is normal in all 4 extremities. EXTREMITIES: There is no peripheral edema. No clubbing, no cyanosis. Peripheral pulses are intact. - Labs CBC & Chem 7: 07/09/18 08:40 07/09/18 08:40 Labs: Abnormal Lab Results - Last 24 Hours (Table) 07/08/18 07/08/18 07/08/18 Range/Units 16:48 21:17 22:32 WBC (3.8-10.6) k/uL MCHC (31.0-37.0) g/dL Neutrophils # (1.3-7.7) k/uL Lymphocytes # (1.0-4.8) k/uL Sodium (137-145) mmol/L BUN (7-17) mg/dL Glucose (74-99) mg/dL POC Glucose (mg/dL) 198 H 338 H 323 H (75-99) mg/dL Calcium (8.4-10.2) mg/dL Alkaline Phosphatase (38-126) U/L 07/09/18 07/09/18 07/09/18 Range/Units 06:54 08:40 08:40 WBC 25.8 H (3.8-10.6) k/uL MCHC 30.6 L (31.0-37.0) g/dL Neutrophils # 24.6 H (1.3-7.7) k/uL Lymphocytes # 0.8 L (1.0-4.8) k/uL Sodium 136 L (137-145) mmol/L BUN 26 H (7-17) mg/dL Glucose 390 H (74-99) mg/dL POC Glucose (mg/dL) 201 H (75-99) mg/dL Calcium 10.7 H (8.4-10.2) mg/dL Alkaline Phosphatase 131 H (38-126) U/L 07/09/18 Range/Units 11:24 WBC (3.8-10.6) k/uL MCHC (31.0-37.0) g/dL Neutrophils # (1.3-7.7) k/uL Lymphocytes # (1.0-4.8) k/uL Sodium (137-145) mmol/L BUN (7-17) mg/dL Glucose (74-99) mg/dL POC Glucose (mg/dL) 323 H (75-99) mg/dL Calcium (8.4-10.2) mg/dL Alkaline Phosphatase (38-126) U/L Microbiology - Last 24 Hours (Table) 07/07/18 00:28 Urine Culture - Final Urine,Voided Proteus mirabilis Assessment and Plan Assessment: Assessment: #1. Acute bronchitis with bronchial inflammation and acute bronchospasm with failure of outpatient treatment #2. Diabetes mellitus Type II #3. Hypertension #4. Hyperlipidemia #5. Previous history of myocardial infarction #6. History of acute sinusitis Plan: The patient was seen and evaluated by Dr. Najera. She is improved today compared to yesterday. We'll start to wean down her steroids. She is not quite back to her baseline. We'll continue with the current treatment plan. Increase activity as tolerated. Possible discharge in the a.m. We'll continue to follow. I, the cosigning physician, performed a history & physical examination of the patient. Lungs sounds with bilateral end expiratory wheeze Maintaining good O2 s aturations in the 90s on room air. I discussed the assessment and plan of care with my nurse practitioner, Halegih Hester. I attest to the above note as dictated by her.
[2018-07-09] MEDS ORDERED: INSULIN ASPART (NovoLOG) 100 UNIT/ML VIAL SQ ONE ×2 (13:24→21:13)
--- NOTE | 2018-07-09 13:38 | P.PN ---
Subjective Progress Note Date: 07/09/18 This is an 83-year-old female patient who presented with complaints of cough and congestion. Patient reports that symptoms started Wednesday or of last week. Patient was started on oral antibiotics with no improvement. Patient also received steroids outpatient with no improvement. Patient reports she was urged from her family to come to the ER for further evaluation. Patient does report she's had a nonproductive cough and sore throat. Patient denies any fevers. Patient denies any chest pain. Patient has past medical history of diabetes mellitus, hyperlipidemia, hypertension, myocardial infarction and right hip replacement. Chest x-ray completed showing increased appearance of per ihilar markings may represent bronchitis. No focal consolidation or pleural effusion. EKG completed showing normal sinus rhythm. Nonspecific ST and T-wave abnormality. Patient started on oral doxycycline and prednisone. Patient also started on Breathing treatments. Patient's blood sugar elevated in the 400s on admission. Hemoglobin A1c has been ordered. Patient started on sliding scale coverage. Pulmonary services have been consulted. At this time patient states she feels extremely improved with breathing. Patient denies chest pain. Patient denies nausea vomiting or diarrhea. Patient denies any urinary burning or frequency. On 07/08/2018 patient is alert and oriented 3. Patient does have some improvement but still remains with expiratory wheezing. Discussed with pulmonary service is recommending patient. Patients blood sugars also elevated. Lantus 5 units has been added along with sliding scale insulin. At this time patient denies chest pain. Patient denies nausea vomiting or diarrhea. Patient denies any urinary burning or frequency. On 07/09/2018 patient was seen and examined on the medical floor she is alert and oriented 3 in no apparent distress she is still complaining of shortness of breath and wheezing otherwise no complaints there is no fever or chills no headache or dizziness no chest pain no nausea or vomiting no abdominal pain no diarrhea and no urinary symptoms Objective - Vital Signs Vital signs: Vital Signs Temp 98.5 F 07/09/18 07:20 Pulse 84 07/09/18 12:20 Resp 16 07/09/18 07:20 BP 168/84 07/09/18 07:20 Pulse Ox 94 L 07/09/18 07:20 Intake & Output 07/08/18 07/09/18 07/09/18 18:59 06:59 18:59 Intake Total 868 Balance 868 Intake: Oral 868 Other: Voiding Method Toilet Toilet Toilet # Voids 1 2 - Exam In general patient is alert and oriented 3 in no apparent distress Head normocephalic and atraumatic Neck supple no JVD no goiter Lungs few scattered rhonchi bilaterally with wheezing Heart regular rate and rhythm S1-S2, no rub or gallop Abdomen is soft nontender nondistended positive bowel sounds no hepatosplenomegaly Extremities no edema no cyanosis or clubbing Neuro no gross focal neurological deficit - Labs CBC & Chem 7: 07/09/18 08:40 07/09/18 08:40 Labs: Abnormal Lab Results - Last 24 Hours (Table) 07/08/18 07/08/18 07/08/18 Range/Units 16:48 21:17 22:32 WBC (3.8-10.6) k/uL MCHC (31.0-37.0) g/dL Neutrophils # (1.3-7.7) k/uL Lymphocytes # (1.0-4.8) k/uL Sodium (137-145) mmol/L BUN (7-17) mg/dL Glucose (74-99) mg/dL POC Glucose (mg/dL) 198 H 338 H 323 H (75-99) mg/dL Calcium (8.4-10.2) mg/dL Alkaline Phosphatase (38-126) U/L 07/09/18 07/09/18 07/09/18 Range/Units 06:54 08:40 08:40 WBC 25.8 H (3.8-10.6) k/uL MCHC 30.6 L (31.0-37.0) g/dL Neutrophils # 24.6 H (1.3-7.7) k/uL Lymphocytes # 0.8 L (1.0-4.8) k/uL Sodium 136 L (137-145) mmol/L BUN 26 H (7-17) mg/dL Glucose 390 H (74-99) mg/dL POC Glucose (mg/dL) 201 H (75-99) mg/dL Calcium 10.7 H (8.4-10.2) mg/dL Alkaline Phosphatase 131 H (38-126) U/L 07/09/18 Range/Units 11:24 WBC (3.8-10.6) k/uL MCHC (31.0-37.0) g/dL Neutrophils # (1.3-7.7) k/uL Lymphocytes # (1.0-4.8) k/uL Sodium (137-145) mmol/L BUN (7-17) mg/dL Glucose (74-99) mg/dL POC Glucose (mg/dL) 323 H (75-99) mg/dL Calcium (8.4-10.2) mg/dL Alkaline Phosphatase (38-126) U/L Microbiology - Last 24 Hours (Table) 07/07/18 00:28 Urine Culture - Final Urine,Voided Proteus mirabilis Assessment and Plan Plan: 1. Bronchitis. Chest x-ray completed showing increased appearance of the perihilar markings may represent bronchitis. No focal consolidation or pleural effusion. Patient started on breathing treatments. Sputum culture has been ordered. Mucinex added. Antibiotics per pulmonary azithromycin and IV steroids at this time 2. Diabetes mellitus type 2. Patient's blood sugar upon arrival 400. Patient not currently on any oral agents. Patient reports she had been on metformin the past but had stomach issues and it was DC'd per PCP and will order hemoglobin A1c. At this time patient maintained on sliding scale insulin. Humulin A1c 8.5. Lantus 5 units has been added 3. Essential hypertension 4. History of hyperlipidemia 5. History of myocardial infarction 6. Hypokalemia potassium 2.9 On admission. Resolved potassium today 4.6 DVT prophylaxis heparin. GI prophylaxis Protonix Patient improving gradually she is still having significant wheezing will reassess in a.m. Possible discharge in the next 1-2 days
[2018-07-09 17:00] LABS: Glucose,Whole Blood 239 mg/dL (75-99)
[2018-07-09] MEDS: methylPREDNISolone SOD SUCCI 40 MG/ML 1 ML VIAL IV SCH ×2 (17:00→23:25)
--- NOTE | 2018-07-09 19:05 | P.OP ---
Date of Procedure: 07/09/18 Preoperative Diagnosis: Globus phenomenon after taking a Tessalon Perles for her cough Postoperative Diagnosis: Same Procedure(s) Performed: Flexible nasopharyngeal laryngoscopy Anesthesia: none Surgeon: Justin Warren Pathology: none sent Condition: stable Disposition: PACU Indications for Procedure: I was called on a stat consultation. This patient swallowed a Tessalon perles and developed a globus pharyngeus symptoms. After talking to the patient she was more specific and the fact that this feeling was not in her throat but more in her mid and lower chest in the midline just above the xiphoid. Nevertheless evaluation of the oropharynx and hypopharynx was recommended. Operative Findings: No abnormality noted Description of Procedure: A flexible E NF type GP nasopharyngoscope was inserted into the patient's left nose with care to avoid any trauma to the septum with turbinate. We passes along the floor the nose into the nasopharynx then into the oropharynx and into the hypopharynx. We evaluated the entire Guill[place] and hypopharynx including the true and false vocal cords performed sinus vallecula epiglottis etc. No abnormalities were noted. The scope was withdrawn. There was no evidence of any Tessalon Perles embedded in her hypopharynx.
--- NOTE | 2018-07-09 19:13 | P.GSCN ---
History of Present Illness Consult date: 07/09/18 Reason for Consult: Stat consult for globus after swallowing a Tessalon Perles Requesting physician: Sujit Pelayo History of present illness: This patient is an 83-year-old white female of [place] ancestry with a bit of an accident. She tells me that a short while ago she swallowed a Tessalon pearle and she felt that he gets stuck in her throat. I was asked to consult on a stat consultation for this symptom. She now tells me that this feeling is more located in her mid chest area and points to the xiphoid. She does not describe this as a pressure phenomenon but just a discomfort. She has had a previous history of heart disease. She denies any throat symptoms denies any hemoptysis, dysphagia, difficulty with nasal regurgitation etc. etc. Review of Systems - Constitutional Denies anorexia - EENT Ears, nose, mouth and throat: Denies dental pain - Cardiovascular Denies edema - Respiratory Reports cough - Gastrointestinal Denies abdominal pain - Genitourinary Genitourinary: Denies nocturia Menstruation: Reports as per HPI - Musculoskeletal Denies arm numbness/tingling - Integumentary Denies boils - Neurological Denies balance difficulties - Psychiatric Denies anhedonia, Denies anxiety - Endocrine Denies cold intolerance - Hematologic/Lymphatic Denies easy bleeding - Allergic/Immunologic Denies allergic rhinitis Past Medical History Past Medical History: Diabetes Mellitus, Hyperlipidemia, Hypertension, Myocardial Infarction (DE) Additional Past Medical History / Comment(s): sinusitis Last Myocardial Infarction Date:: 1997 History of Any Multi-Drug Resistant Organisms: None Reported Past Surgical History: Appendectomy, Hysterectomy, Orthopedic Surgery Additional Past Surgical History / Comment(s): right hip replacement Past Anesthesia/Blood Transfusion Reactions: No Reported Reaction Past Psychological History: No Psychological Hx Reported Smoking Status: Never smoker Past Alcohol Use History: Occasional Past Drug Use History: None Reported - Past Family History Mother Family Medical History: Cancer Additional Family Medical History / Comment(s): breast Father Family Medical History: Asthma Medications and Allergies Home Medications Medication Instructions Recorded Confirmed Type Aspirin 81 mg PO DAILY 07/24/13 07/06/18 History Atenolol 12.5 mg PO DAILY 07/24/13 07/06/18 History Enalapril Maleate 2.5 mg PO DAILY 07/24/13 07/06/18 History Lansoprazole 30 mg PO DAILY 07/24/13 07/06/18 History Atorvastatin [Lipitor] 20 mg PO HS 08/13/15 07/06/18 History Ascorbic Acid [Vitamin C with Elizabeth 100 mg PO DAILY 07/06/18 07/06/18 History Hips] Benzonatate [Tessalon Perles] 100 mg PO TID 07/06/18 07/06/18 History Calcium Carbonate/Vitamin D3 1 tab PO BID 07/06/18 07/06/18 History [Calcium 500-Vit D3 200 Tablet] Doxycycline Hyclate [Vibramycin] 100 mg PO BID 07/06/18 07/06/18 History Turmeric Root Extract [Turmeric] 1,053 mg PO DAILY 07/06/18 07/06/18 History Zinc 50 mg PO DAILY 07/06/18 07/06/18 History predniSONE 20 mg PO BID 07/06/18 07/06/18 History Allergies Allergy/AdvReac Type Severity Reaction Status Date / Time nickel Allergy Rash/Hives Verified 07/06/18 21:53 Surgical - Exam Osteopathic Statement: *. No significant issues noted on an osteopathic structural exam other than those noted in the History and Physical/Consult. Vital Signs Temp Pulse Resp BP Pulse Ox 98.1 F 79 18 155/87 96 07/06/18 21:29 07/06/18 21:29 07/06/18 21:29 07/06/18 21:29 07/06/18 21:29 - General well developed, well nourished, no distress, no pain - Eyes PERRL, normal ocular movement - ENT normal pinna, normal nares, normal mucosa, no hearing loss, no congestion - Neck no masses, no bruits, trachea midline, no lymphadectomy, no venous distension - Respiratory normal expansion, normal respiratory effort - Cardiovascular Rhythm: regular - Abdomen Abdomen: soft - Integumentary no rash, no growths - Neurologic normal coordination, normal sensation - Musculoskeletal normal gait, normal posture - Psychiatric oriented to time, oriented to person, oriented to place, speech is normal, memory intact Results - Labs 07/09/18 08:40 07/09/18 08:40 Abnormal Lab Results - Last 24 Hours (Table) 07/08/18 07/08/18 07/09/18 Range/Units 21:17 22:32 06:54 WBC (3.8-10.6) k/uL MCHC (31.0-37.0) g/dL Neutrophils # (1.3-7.7) k/uL Lymphocytes # (1.0-4.8) k/uL Sodium (137-145) mmol/L BUN (7-17) mg/dL Glucose (74-99) mg/dL POC Glucose (mg/dL) 338 H 323 H 201 H (75-99) mg/dL Calcium (8.4-10.2) mg/dL Alkaline Phosphatase (38-126) U/L 07/09/18 07/09/18 07/09/18 Range/Units 08:40 08:40 11:24 WBC 25.8 H (3.8-10.6) k/uL MCHC 30.6 L (31.0-37.0) g/dL Neutrophils # 24.6 H (1.3-7.7) k/uL Lymphocytes # 0.8 L (1.0-4.8) k/uL Sodium 136 L (137-145) mmol/L BUN 26 H (7-17) mg/dL Glucose 390 H (74-99) mg/dL POC Glucose (mg/dL) 323 H (75-99) mg/dL Calcium 10.7 H (8.4-10.2) mg/dL Alkaline Phosphatase 131 H (38-126) U/L 07/09/18 Range/Units 16:58 WBC (3.8-10.6) k/uL MCHC (31.0-37.0) g/dL Neutrophils # (1.3-7.7) k/uL Lymphocytes # (1.0-4.8) k/uL Sodium (137-145) mmol/L BUN (7-17) mg/dL Glucose (74-99) mg/dL POC Glucose (mg/dL) 239 H (75-99) mg/dL Calcium (8.4-10.2) mg/dL Alkaline Phosphatase (38-126) U/L Microbiology - Last 24 Hours (Table) 07/07/18 00:28 Urine Culture - Final Urine,Voided Proteus mirabilis Diabetes panel 07/09/18 Range/Units 08:40 Sodium 136 L (137-145) mmol/L Potassium 4.6 (3.5-5.1) mmol/L Chloride 100 (98-107) mmol/L Carbon Dioxide 27 (22-30) mmol/L BUN 26 H (7-17) mg/dL Creatinine 0.79 (0.52-1.04) mg/dL Glucose 390 H (74-99) mg/dL Calcium 10.7 H (8.4-10.2) mg/dL AST 21 (14-36) U/L ALT 21 (9-52) U/L Alkaline Phosphatase 131 H (38-126) U/L Total Protein 6.6 (6.3-8.2) g/dL Albumin 4.0 (3.5-5.0) g/dL Calcium panel 07/09/18 Range/Units 08:40 Calcium 10.7 H (8.4-10.2) mg/dL Albumin 4.0 (3.5-5.0) g/dL Pituitary panel 07/09/18 Range/Units 08:40 Sodium 136 L (137-145) mmol/L Potassium 4.6 (3.5-5.1) mmol/L Chloride 100 (98-107) mmol/L Carbon Dioxide 27 (22-30) mmol/L BUN 26 H (7-17) mg/dL Creatinine 0.79 (0.52-1.04) mg/dL Glucose 390 H (74-99) mg/dL Calcium 10.7 H (8.4-10.2) mg/dL Adrenal panel 07/09/18 Range/Units 08:40 Sodium 136 L (137-145) mmol/L Potassium 4.6 (3.5-5.1) mmol/L Chloride 100 (98-107) mmol/L Carbon Dioxide 27 (22-30) mmol/L BUN 26 H (7-17) mg/dL Creatinine 0.79 (0.52-1.04) mg/dL Glucose 390 H (74-99) mg/dL Calcium 10.7 H (8.4-10.2) mg/dL Total Bilirubin 0.6 (0.2-1.3) mg/dL AST 21 (14-36) U/L ALT 21 (9-52) U/L Alkaline Phosphatase 131 H (38-126) U/L Total Protein 6.6 (6.3-8.2) g/dL Albumin 4.0 (3.5-5.0) g/dL Assessment and Plan (1) Globus pharyngeus Narrative/Plan: This patient has a discomfort to the lower midline chest. There is a possibility that the Tessalon Perles could've got stuck in a pre-existing esophageal diverticulum. This is clearly speculation on my part but on having the patient is a large amount of water. If this does not clear, cardiac consultation will be instituted. I told the nurse to give her about 15 minutes with the drinking of the water but if the symptoms are persistent cardiac consultation and EKG will be performed. I do not see any pathology in the oropharynx or hypopharynx so therefore my role in this patient is very limited. If I can be of any further service to you please do not hesitate to reconsult. Best personal regards Current Visit: Yes Status: Acute Code(s): R09.89 - OTH SYMPTOMS AND SIGNS INVOLVING THE CIRC AND RESP SYSTEMS SNOMED Code(s): 893956111 (2) Chest pain Narrative/Plan: I've ordered an EKG and the patient is to swallow a large amount of water to see if this takes care of the discomfort. If not improved in a very short period of time cardiac consultation is recommended. Current Visit: Yes Status: Acute Code(s): R07.9 - CHEST PAIN, UNSPECIFIED SNOMED Code(s): 19073804 Time with Patient: Greater than 30
[2018-07-09 20:32] LABS: Glucose,Whole Blood 276 mg/dL (75-99)
[2018-07-09] MEDS: ATORVASTATIN 20 MG TAB PO SCH (21:20)
[2018-07-10 07:31] LABS: Glucose,Whole Blood 197 mg/dL (75-99)
[2018-07-10] MEDS: INSULIN ASPART (NovoLOG) 100 UNIT/ML VIAL SQ SCH ×2 (07:34→12:23)
[2018-07-10] MEDS: guaiFENesin 600 MG TABLET.ER PO PRN (07:34)
[2018-07-10] MEDS: methylPREDNISolone SOD SUCCI 40 MG/ML 1 ML VIAL IV SCH (07:34)
[2018-07-10 07:53] VITALS: BP 123/71; RESP 16; TEMP 98.1
[2018-07-10 09:10] LABS: Basophils % (A) 0 %; Eosinophils % (A) 0 %; HCT 42.3 % (34.0-46.0); HGB 13.2 gm/dL (11.4-16.0); Hypochromasia Slight; Lymphocytes # (A) 0.8 k/uL (1.0-4.8); Lymphocytes % (A) 4 %; MCH 25.7 pg (25.0-35.0); MCHC 31.2 g/dL (31.0-37.0); MCV 82.2 fL (80.0-100.0); Mean Platelet Volume 7.5; Monocytes # (A) 0.4 k/uL (0-1.0); Monocytes % (A) 2 %; Neutrophils # (A) 20.4 k/uL (1.3-7.7); Neutrophils % (A) 94 %; Platelet Count 376 k/uL (150-450); RBC 5.15 m/uL (3.80-5.40); RDW 14.3 % (11.5-15.5); WBC 21.7 k/uL (3.8-10.6)
[2018-07-10 09:15] LABS: Albumin 3.7 g/dL (3.5-5.0); Calcium 10.3 mg/dL (8.4-10.2); Potassium 4.2 mmol/L (3.5-5.1); Total Bilirubin 0.5 mg/dL (0.2-1.3); Total Protein 6.2 g/dL (6.3-8.2)
[2018-07-10] MEDS: BUDESONIDE 1 MG/2 ML NEBU INHALATION SCH (09:21)
[2018-07-10] MEDS: FORMOTEROL FUMARATE 20 MCG/2 ML NEBU INHALATION SCH (09:21)
[2018-07-10] MEDS: IPRATROPIUM-ALBUTEROL 3 ML NEB INHALATION SCH (09:21)
[2018-07-10 09:44] VITALS: PULSE 84
[2018-07-10] MEDS: PANTOPRAZOLE 40 MG TABLET PO SCH (10:19)
[2018-07-10] MEDS: LISINOPRIL 2.5 MG TAB PO SCH (10:19)
[2018-07-10] MEDS: CALCIUM CARB-VIT D 500MG-200UN 1 EACH TAB PO SCH (10:19)
[2018-07-10] MEDS: POTASSIUM CHLORIDE ER 20 MEQ TAB.ER PO SCH (10:19)
[2018-07-10] MEDS: AZITHROMYCIN 500 MG TAB PO SCH (10:20)
[2018-07-10] MEDS: ATENOLOL 12.5 MG TAB PO SCH (10:20)
[2018-07-10] MEDS: PIOGLITAZONE 30 MG TAB PO SCH (10:20)
[2018-07-10] MEDS: ASPIRIN 81 MG PO SCH (10:20)
[2018-07-10] MEDS: HEPARIN SODIUM,PORCINE 5,000 UNIT/ML 1 ML VIAL SQ SCH (10:21)
[2018-07-10] MEDS: INSULIN DETEMIR (LEVEMIR) 100 UNIT/ML SYR SQ SCH (10:27)
--- NOTE | 2018-07-10 11:46 | P.DS ---
Providers Date of admission: 07/07/18 02:09 Expected date of discharge: 07/10/18 Attending physician: Sujit Pelayo Consults: 07/07/18 02:40 Consult Physician Routine Consulting Provider: Otto Najera Consult Reason/Comments: bronchitis with treatment failure Do you want consulting provider notified?: Yes 07/09/18 18:26 Consult Physician Stat Consulting Provider: Justin Warren Consult Reason/Comments: feels pill is stuck in throat Do you want consulting provider notified?: Yes 07/09/18 19:13 Consult Physician Stat Consulting Provider: Arvin Camacho Consult Reason/Comments: Midsternal pain Do you want consulting provider notified?: Yes Primary care physician: Ignacia Garcia [facility] Course: Diagnoses on discharge: 1. Bronchitis. Chest x-ray completed showing increased appearance of the perihilar markings may represent bronchitis. No focal consolidation or pleural effusion. Patient started on breathing treatments. Sputum culture has been ordered. Mucinex added. Antibiotics per pulmonary azithromycin and IV steroids at this time 2. Diabetes mellitus type 2. Patient's blood sugar upon arrival 400. Patient not currently on any oral agents. Patient reports she had been on metformin the past but had stomach issues and it was DC'd per PCP and will order hemoglobin A1c. At this time patient maintained on sliding scale insulin. hemoglobin A1c 8.5. Lantus 5 units has been added 3. Essential hypertension 4. History of hyperlipidemia 5. History of myocardial infarction 6. Hypokalemia potassium 2.9 On admission. Resolved potassium today 4.6 Hospital course: This is an 83-year-old female patient who presented with complaints of cough and congestion. Patient reports that symptoms started Wednesday or of last week. Patient was started on oral antibiotics with no improvement. Patient also received steroids outpatient with no improvement. Patient reports she was urged from her family to come to the ER for further evaluation. Patient does report she's had a nonproductive cough and sore throat. Patient denies any fevers. Patient denies any chest pain. Patient has past medical history of diabetes mellitus, hyperlipidemia, hypertension, myocardial infarction and right hip replacement. Chest x-ray completed showing increased appearance of oscar hilar markings may represent bronchitis. No focal consolidation or pleural effusion. EKG completed showing normal sinus rhythm. Nonspecific ST and T-wave abnormality. Patient started on oral doxycycline and prednisone. Patient also started on Breathing treatments. Patient's blood sugar elevated in the 400s on admission. Hemoglobin A1c has been ordered. Patient started on sliding scale coverage. Pulmonary services have been consulted. At this time patient states she feels extremely improved with breathing. Patient denies chest pain. Patient denies nausea vomiting or diarrhea. Patient denies any urinary burning or frequency. On 07/08/2018 patient is alert and oriented 3. Patient does have some improvement but still remains with expiratory wheezing. Discussed with pulmonary service is recommending patient. Patients blood sugars also elevated. Lantus 5 units has been added along with sliding scale insulin. At this time patient denies chest pain. Patient denies nausea vomiting or diarrhea. Patient denies any urinary burning or frequency. On 07/09/2018 patient was seen and examined on the medical floor she is alert and oriented 3 in no apparent distress she is still complaining of shortness of breath and wheezing otherwise no complaints there is no fever or chills no headache or dizziness no chest pain no nausea or vomiting no abdominal pain no diarrhea and no urinary symptoms On 07/10/2018, patient was seen and examined on the medical floor, yesterday afternoon she choked on the pill and felt that it was stuck in her throat, ENT were called and patient was seen by Dr. Lo who performed a flexible nasopharyngeal laryngoscopy, no pills were recovered however patient felt better after having the procedure, and did not have any recurrence of her symptoms, patient was also having some chest pressure EKG was done and 3 sets of cardiac enzymes were done no abnormality was found. Patient felt better today and wanted to be discharged home. She will be discharged home today she will be maintained on a short course of antibiotics and oral steroids. During this admission patient had elevated glucose level and evidence of maria dolores betes mellitus with hemoglobin A1c 8.5, she received insulin during this admission, she was given a prescription for Actos 30 mg once daily at the time of discharge her primary care physician should follow glucose level closely and add medications if needed. On admission to the hospital potassium was very low it was down to 2.9 . Patient was given potassium supplement during this admission . Potassium was normal at the time of discharge . Her primary care physician should follow potassium level closely and add supplements if needed . During this admission patient had an episode of chest pain EKG and 3 sets of enzymes were negative . Her primary care physician should follow on that and I'll arrange for a stress test if necessary as outpatient or a cardiology appointment . follow-up with primary care physician Dr. Garcia in 2-3 days Patient Condition at Discharge: Good Plan - Discharge Summary Discharge Rx Participant: No New Discharge Prescriptions: New Pioglitazone [Actos] 30 mg PO DAILY tab Cefuroxime Axetil [Ceftin] 500 mg PO BID 3 Days #6 tab Azithromycin [Zithromax] 500 mg PO DAILY tab Continue Lansoprazole 30 mg PO DAILY Enalapril Maleate 2.5 mg PO DAILY Atenolol 12.5 mg PO DAILY Aspirin 81 mg PO DAILY Atorvastatin [Lipitor] 20 mg PO HS Turmeric Root Extract [Turmeric] 1,053 mg PO DAILY Calcium Carbonate/Vitamin D3 [Calcium 500-Vit D3 200 Tablet] 1 tab PO BID Ascorbic Acid [Vitamin C with Elizabeth Hips] 100 mg PO DAILY predniSONE 20 mg PO BID Zinc 50 mg PO DAILY Discontinued Doxycycline Hyclate [Vibramycin] 100 mg PO BID Benzonatate [Tessalon Perles] 100 mg PO TID Discharge Medication List Aspirin 81 mg PO DAILY 07/24/13 [History] Atenolol 12.5 mg PO DAILY 07/24/13 [History] Enalapril Maleate 2.5 mg PO DAILY 07/24/13 [History] Lansoprazole 30 mg PO DAILY 07/24/13 [History] Atorvastatin [Lipitor] 20 mg PO HS 08/13/15 [History] Ascorbic Acid [Vitamin C with Elizabeth Hips] 100 mg PO DAILY 07/06/18 [History] Calcium Carbonate/Vitamin D3 [Calcium 500-Vit D3 200 Tablet] 1 tab PO BID 07/06/18 [History] Turmeric Root Extract [Turmeric] 1,053 mg PO DAILY 07/06/18 [History] Zinc 50 mg PO DAILY 07/06/18 [History] predniSONE 20 mg PO BID 07/06/18 [History] Azithromycin [Zithromax] 500 mg PO DAILY tab 07/10/18 [Rx] Cefuroxime Axetil [Ceftin] 500 mg PO BID 3 Days #6 tab 07/10/18 [Rx] Pioglitazone [Actos] 30 mg PO DAILY tab 07/10/18 [Rx] Follow up Appointment(s)/Referral(s): Ignacia Garcia MD [Primary Care Provider] - 1-2 days Otto Najera DO [Doctor of Osteopathic Medicine] - 1 Week
[2018-07-10 12:03] LABS: Glucose,Whole Blood 263 mg/dL (75-99)
--- NOTE | 2018-07-10 13:14 | CONS ---
CONSULTATION Mrs. Castillo is an 83-year-old female who is followed by Dr. Federico Mitchell, who presented with symptoms of continuing cough and evidence of bronchitis. Yesterday, she received the Tessalon Perles and she felt that it got stuck in her esophagus and continued to have a nausea as well as trying to dislodge it. She started to complain of chest discomfort. She was evaluated by Dr. Warren and underwent endoscopy and was found to have no evidence of lodged pills. She is feeling well this morning. Her breathing is stable. She is active physically. She has underwent cardiac catheterization following her presentation with myocardial infarction, but according to her, there was no evidence of significant obstructive disease. No percutaneous revascularization was performed. She denies any PND, orthopnea. No peripheral edema. No syncope. Her coronary risk factors are remarkable for hypertension and hyperlipidemia. She is diabetic. She is nonsmoker. MEDICATION: Include: Enalapril 2.5 mg daily, Lipitor 20 mg daily, atenolol 12.5 mg daily, Protonix, aspirin, Actos 30 mg daily. REVIEW OF SYSTEMS: RESPIRATORY SYSTEM: She had dyspnea on exertion. The cough. No document history of obstructive lung disease. GI system: No recent GI bleeding. No peptic ulcer disease. system: No dysuria or hematuria. NERVOUS SYSTEM: No stroke or seizure. PHYSICAL EXAMINATION: GENERAL: She is an 83-year-old female, alert, oriented, in no apparent distress. VITAL SIGNS: Blood pressure 123/70 with a heart rate in the 70s. HEAD: Normocephalic. Eyes sclerae anicteric. NECK: Good carotid upstroke. No bruit. No jugular venous distention. LUNGS: Clear to auscultation. HEART: Regular rate and rhythm S1, S2. No S3 with systolic ejection murmur 2/6 heard at the base. No diastolic murmur. No rub. ABDOMEN: Soft, nontender. Positive bowel sounds. No organomegaly. EXTREMITIES: No edema. Intact distal pulses. LAB DATA: Lab data revealed a EKG sinus mechanism with no acute ST-segment changes. Troponin less than 0.012. BUN creatinine 31 and 0.84. Potassium 4.2. IMPRESSION: 1. Chest discomfort atypical for ischemic heart disease probably related to the nausea and feeling that the pill was stuck in her esophagus. 2. History of coronary artery disease according to the patient, stable. 3. Hypertension. 4. Hyperlipidemia. 5. Diabetes mellitus. RECOMMENDATIONS: From the cardiac standpoint, she is stable. No further cardiac workup will be needed at this time. I have encouraged her to follow up with Dr. Mitchell after her discharge. Thank you for this consult. We will follow with you. ANASTASIA / SLIME: [id number] /
--- NOTE | 2018-07-10 17:44 | PN ---
PROGRESS NOTE DATE OF SERVICE: 07/10/2018 This is a very pleasant 83-year-old female who was admitted with a diagnosis of acute bronchitis with bronchial inflammation and bronchospasm. She failed outpatient therapy. The patient is doing much better today. She is feeling much better. She could be discharged home. I did recommend prednisone on discharge. She should take 20 mg a day for 4 days, 10 mg for 4 days and then stop. She should take the prednisone in the morning with food. I did explain this to her. In addition, it is very important that she get some rest. She should not be doing too much. Her daughter is with her and she says that she will make sure that happens. The patient denies significant cough, wheezing, or shortness of breath. She is feeling much better. In addition to the above, she has a history of diabetes, hypertension, hyperlipidemia, previous myocardial infarction and acute sinusitis. PHYSICAL EXAMINATION: Current vital signs are reviewed. Temperature is 98.1, heart rate 80, respiratory rate 16, blood pressure 123/71, room air saturation 93%, mean arterial pressure is 88. Appears in no acute distress. HEENT: Grossly unremarkable. No oxygen noted. NECK: Supple. Full range of motion. No adenopathy or thyromegaly. Neck veins are flat. CARDIOVASCULAR: Reveals regular rhythm and rate. Heart sounds are distant. LUNGS: Reveal some residual coarse rhonchi. No wheezes. Slight prolongation on forced maneuver. No crackles. ABDOMEN: Soft. Bowel sounds are heard. EXTREMITIES: Intact. No cyanosis, clubbing, or edema. SKIN: Without rash. NEUROLOGIC: Brief but nonfocal. White count 21.7, hemoglobin 13.2, hematocrit 42.3, platelet count 376,000. Sodium 135, potassium 4.2, chloride 102, CO2 of 24. BUN and creatinine were 31 and 0.84. The rest of the labs look okay. No x-rays to report. Labs are reviewed. Medications are reviewed. Recommendations are made in regards to the corticosteroid. ASSESSMENT: 1. Acute bronchitis with bronchial inflammation and acute bronchospasm, much improved. 2. Type 2 diabetes mellitus. 3. Benign essential hypertension. 4. Hyperlipidemia. 5. Previous history of myocardial infarction. 6. History of acute sinusitis. PLAN: The patient apparently is going to be discharged home. The patient apparently choked on a pill. The patient took some time to feel improved. ENT was called. From the pulmonary standpoint, she is doing much better. The patient will need to be discharged home on some prednisone. I recommend 20 mg a day for 4 days and then 10 mg a day for 4 days. She should take the prednisone in the morning with food. I gave her a card. I would like to see her in the office. No additional recommendations are made. Her daughter is sitting at the bedside. MMODL / IJN: [id number] /
[2018-07-11] MEDS ORDERED: predniSONE 20 MG TAB PO SCH (09:00)
--- NOTE | 2018-07-12 10:50 | CDI ---
Documentation Clarification Form Date: 07/12/18 From: Tamia Arboleda Phone: If questions call Radha June @ [phone], Hours-8:30 am & 5 pm M- Bunny Admit Date: 07/07/2018 2:09:00 AM Patient Name: Kendra Castillo Visit Number: [id number] Discharge Date: 07/10/2018 12:57:00 PM ATTENTION: The Clinical Documentation Specialists (CDI) and [facility] Coding Staff appreciate your assistance in clarifying documentation. Please respond to the clarification below the line at the bottom and electronically sign. The CDI & [facility] Coding staff will review the response and follow-up if needed. Please note: Queries are made part of the Legal Health Record. If you have any questions, please contact the author of this message via ITS. Dr. Sujit Pelayo Documentation states: Per ED note states intermittent cough incontinence and a little bit of dysuria. History/Risk Factors: ac bronchitis, DM w hyperglycemia Clinical indicators: UA: WBC 12, rare bacteria; Urine culture: Proteus mirabilis >1000,000 CFU/ML Treatment: Doxycycline 100 mg po bid, IV Rocephin, Zithromax 500 mg po daily, IVPB Ziithromax, Clinical significance of diagnostic testing and treatment CANNOT be assumed or coded without physician documentation of significance if any. Please clarify what abnormal laboratory signifies: UTI due to Proteus mirabilis ruled in UTI ruled out Abnormal Lab Value Unable to determine Other, please specify UTI due to Proteus Mirabilis ruled in MTDD
== END 2018-07-10 12:57 | disposition home or self-care (01) | DRG 202 ==
LOC: EC 21:28 → 4MS4W 07-07 02:09 → 4SSUR 07-07 17:46
PROVIDERS: ADMIT Internal Medicine; ATTEND Internal Medicine
PROC: 0CJS8ZZ Inspection of Larynx, Via Natural or Artificial Opening Endoscopic (ICD-10-PCS; principal; 2018-07-09)
DX: J20.9 Acute bronchitis, unspecified (principal); N39.0 Urinary tract infection, site not specified; E11.65 Type 2 diabetes mellitus with hyperglycemia; B96.4 Proteus (mirabilis) (morganii) as the cause of diseases classified elsewhere; E78.5 Hyperlipidemia, unspecified; I25.2 Old myocardial infarction; I10 Essential (primary) hypertension; R32 Unspecified urinary incontinence; R30.0 Dysuria; E87.6 Hypokalemia; I25.10 Atherosclerotic heart disease of native coronary artery without angina pectoris; Z79.82 Long term (current) use of aspirin; Z79.52 Long term (current) use of systemic steroids; Z79.899 Other long term (current) drug therapy; Z91.048 Other nonmedicinal substance allergy status; Z90.710 Acquired absence of both cervix and uterus; Z96.641 Presence of right artificial hip joint; Z90.49 Acquired absence of other specified parts of digestive tract; Z77.22 Contact with and (suspected) exposure to environmental tobacco smoke (acute) (chronic); Z82.5 Family history of asthma and other chronic lower respiratory diseases; Z80.3 Family history of malignant neoplasm of breast
CPT/HCPCS: 36415; 71046; 80053; 81001; 83036; 83735; 83880; 84132; 84484; 85025; 87077; 87086; 87186; 87502; 93005; 94640; 96360; 96361; 99285

== ENCOUNTER → 2018-12-09 | Outpatient (CLI) | payer MEDICARE ==
--- NOTE | 2018-12-09 14:27 | MR ---
EXAMINATION TYPE: MR shoulder RT wo con DATE OF EXAM: 12/09/2018 COMPARISON: Plain film dated 11/23/2018 HISTORY: Right shoulder pain TECHNIQUE: Multiplanar, multisequence imaging of the right shoulder is performed without contrast. FINDINGS: Rotator Cuff: There is a rotator cuff tear, supraspinatus tendon is torn and retracted to the level o f the acromion. The infraspinatus tendon shows abnormal thickening and increased signal compatible wi th tendinosis and probable partial tear. Suspect partial tear of the subscapularis tendon may be pres ent as well. Acromioclavicular Joint: There is arthropathy of the acromioclavicular joint. Distal acromion is down turned. Glenohumeral Joint: Intact Labrum: The labrum appears grossly intact given limitation of non-arthrogram study. Biceps Tendon: The long head of biceps is attenuated and not well seen within the bicipital groove, f luid signal is noted this level. Bone marrow signal: No focal abnormal marrow signal is appreciated. Other: There is a joint effusion present, fluid signal present in the region along the musculotendino us junction of subscapularis and there is fluid in the subacromial subdeltoid bursa IMPRESSION: Rotator cuff tear. Acromioclavicular joint arthropathy.
== END | disposition home or self-care (01) ==
LOC: RADMRIMAIN 09:31
PROVIDERS: ATTEND Orthopaedic Surgery
DX: M75.101 Unspecified rotator cuff tear or rupture of right shoulder, not specified as traumatic (principal); M12.9 Arthropathy, unspecified

== ENCOUNTER → 2019-01-11 | Outpatient (CLI) | payer MEDICARE ==
[2019-01-11 16:38] LABS: Basophils # (A) 0.1 k/uL (0-0.2); Basophils % (A) 1 %; Eosinophils # (A) 0.1 k/uL (0-0.7); Eosinophils % (A) 1 %; HCT 39.8 % (34.0-46.0); HGB 12.6 gm/dL (11.4-16.0); Lymphocytes # (A) 1.6 k/uL (1.0-4.8); Lymphocytes % (A) 29 %; MCH 26.4 pg (25.0-35.0); MCHC 31.5 g/dL (31.0-37.0); MCV 83.9 fL (80.0-100.0); Mean Platelet Volume 6.8; Monocytes # (A) 0.3 k/uL (0-1.0); Monocytes % (A) 6 %; Neutrophils # (A) 3.4 k/uL (1.3-7.7); Neutrophils % (A) 61 %; Platelet Count 201 k/uL (150-450); RBC 4.75 m/uL (3.80-5.40); RDW 14.3 % (11.5-15.5); WBC 5.5 k/uL (3.8-10.6)
[2019-01-11 17:08] LABS: Potassium 4.1 mmol/L (3.5-5.1)
== END | disposition home or self-care (01) ==
LOC: LABPAT 15:48
PROVIDERS: ATTEND Orthopaedic Surgery
DX: Z01.812 Encounter for preprocedural laboratory examination (principal); M75.41 Impingement syndrome of right shoulder
CPT/HCPCS: 80051; 85025

== ENCOUNTER → 2019-08-10 | Outpatient (CLI) | payer MEDICARE ==
--- NOTE | 2019-08-10 13:50 | XR ---
EXAMINATION TYPE: XR cervical spine comp DATE OF EXAM: 08/10/2019 TECHNIQUE: Frontal, lateral, oblique, swimmers, and open mouth view of the cervical spine are obtaine d. HISTORY: M54.2 cervical pain COMPARISON: MRI cervical spine July 05, 2012 FINDINGS: The cervical spine is visualized in its entirety from C1 thru the top of T1 level, it is s table and straightened in alignment without evidence of acute fracture or dislocation. Osseous struc tures are demineralized which is noted to lower radiographic sensitivity for evaluation of fine anato mitra detail. The pre-vertebral soft tissue appears within normal limits. The C1-C2 articulation is wi thin normal limits on the open mouth view. There is now moderate to severe disc space narrowing and a nterior spurring C5-C6 level progressed from 2013 MRI. There is moderate disc space narrowing C6-C7 a nd C7-T1 levels. There is mild disc space narrowing C3-C4 level. There are multilevel uncovertebral f acet degenerative changes greater on the right side and greatest bilaterally at C5-C6 level. Multilev el neural foraminal narrowing felt present greatest at right C4-C5 and C6-C7 levels on oblique images due to marginal spurring. Overlying skin soft tissue is unremarkable. IMPRESSION: As above.
--- NOTE | 2019-08-10 14:50 | CT ---
EXAMINATION TYPE: CT sinus w con DATE OF EXAM: 08/10/2019 COMPARISON: CT orbits December 20, 2015 HISTORY: Facial pain and pressure per patient. Chronic sinusitis per order. CT DLP: 563 mGycm Automated exposure control for dose reduction was used. CONTRAST: CT scan of the facial bones is performed with IV Contrast, patient injected with 100 mL of Isovue 300 . TECHNIQUE: CT scan of the sinuses is performed without contrast, axial images are obtained, coronal r eformatted images are also reviewed. FINDINGS: There is stable 1.4 cm mucous retention cyst or polyp in the inferior right maxillary sinus . Focal mild to moderate anterior wall thickening or polyp right maxillary sinus axial image 17 redem onstrated unchanged from orbit study. Mild mucosal thickening involving ethmoid sinuses bilaterally. No suspicious new suspicious opacification or air-fluid levels. The ostiomeatal complex is patent bi laterally on coronal image 16. Nasal septum remains deviated to right of midline. Visualized portion of mastoid air cells show no abnormal opacification. The globes are intact bilate rally. No suspicious postcontrast enhancement is present. Visualized portion of brain shows mild to moderate generalized cerebral atrophy. IMPRESSION: Chronic paranasal sinus disease redemonstrated. No acute sinusitis noted.
== END | disposition home or self-care (01) ==
LOC: RADCTMAIN 12:43
PROVIDERS: ATTEND Family Medicine
DX: J32.8 Other chronic sinusitis (principal); M99.71 Connective tissue and disc stenosis of intervertebral foramina of cervical region; M48.02 Spinal stenosis, cervical region; M47.812 Spondylosis without myelopathy or radiculopathy, cervical region
CPT/HCPCS: 82565; 84520; 72050; 36415; 70487; Q9967

== ENCOUNTER → 2019-11-09 | Outpatient (CLI) | payer MEDICARE ==
--- NOTE | 2019-11-13 18:14 | BD ---
EXAMINATION TYPE: Axial Bone Density DATE OF EXAM: 11/09/2019 COMPARISON: NONE CLINICAL HISTORY: Postmenopausal screening Height: 60 Weight: 167.5 FRAX RISK QUESTIONS: Alcohol (3 or more units per day): NO Family History (Parent hip fracture): no Glucocorticoids (More than 3mos): no (Ex: prednisone, prednisolone, methylprednisolone, dexamethasone, and hydrocortisone). History of Fracture in Adulthood: no Secondary Osteoporosis: no 1. Type 1 Diabetes: no 2. Hyperthyroidism: no 3. Menopause before 45: no 4. Malnutrition: no 5. Chronic liver disease: no Rheumatoid Arthritis: no Current Tobacco Use: no RISK FACTORS HISTORY OF: Surgery to Spine/Hip(right/left)/Wrist (right/left): right hip When: age 76 Active: yes Diet low in dairy products/other sources of calcium: no Postmenopausal woman: age 48 MEDICATIONS: blood pressure meds, cholesterol meds, prevacid Additional History: EXAM MEASUREMENTS: Bone mineral densitometry was performed using the [employer] System. Bone mineral density as measured about the Lumbar spine is: ----- L1-L4(G/cm2): 1.158 T Score Values are as follows: ----- L2: 0.0 ----- L3: 0.0 ----- L4: -0.4 ----- L1-L4: -0.2 Bone mineral density has: decreased -1.5 % since study of: 08.11.2016 Bone mineral density about the L hip (g/cm2): 0.841 T Score values are as follows: -----L Neck: -1.4 -----L Total: -0.7 Bone mineral density has: % since study of: IMPRESSION: Osteopenia (T Score between -2.5 and -1). There is slightly increased risk of fracture and the patient may be considered for treatment. Re-Screen 2-5 years. NOTE: T-SCORE=SD OF THE YOUNG ADULT MEAN.
== END | disposition home or self-care (01) ==
LOC: RADBDWWP 15:41
PROVIDERS: ATTEND Family Medicine
DX: M85.80 Other specified disorders of bone density and structure, unspecified site (principal); Z78.0 Asymptomatic menopausal state
CPT/HCPCS: 77080

== ENCOUNTER 2020-11-01 06:26 | Day surgery (SDC) | payer MEDICARE ==
[2020-10-25 10:34] VITALS: BMI 27.4
[~2020-11-01 06:26] MED LIST: HEPARIN SODIUM,PORCINE/PF 5,000 UNIT/0.5 ML SYRINGE SQ PRN
[2020-11-01] MEDS ORDERED: MIDAZOLAM 2 MG/2 ML VIAL IV PRN (06:42)
[2020-11-01] MEDS ORDERED: LACTATED RINGERS 1,000 ML IV SCH (06:42)
[2020-11-01] MEDS ORDERED: DEXAMETHASONE SOD PHOSPHATE 4 MG/ML 1 ML VIAL IV ONE (06:42)
[2020-11-01] MEDS ORDERED: ONDANSETRON 4 MG/2 ML VIAL IVP ONE (06:42)
[2020-11-01] MEDS ORDERED: INDOCYANINE GREEN 25 MG VIAL IV STA (06:52)
[2020-11-01] MEDS ORDERED: ACETAMINOPHEN TAB 500 MG TAB PO PRN (06:52)
--- NOTE | 2020-11-01 06:52 | P.GSHP ---
History of Present Illness H&P Date: 11/01/20 CHIEF COMPLAINT: Cholecystitis HISTORY OF PRESENT ILLNESS: The patient is a 85-year-old female who presents with history of epigastric including right upper quadrant abdominal pain. She underwent diagnostic studies for her gallbladder. Separately her clinical picture was consistent with cholecystitis. Now she presents for surgical intervention. PAST MEDICAL HISTORY: Please see list PAST SURGICAL HISTORY: Please see list MEDICATIONS: Please see list ALLERGIES: Please see list SOCIAL HISTORY: Please see list FAMILY HISTORY: Please see list REVIEW OF ORGAN SYSTEMS: CONSTITUTIONAL: No reports of fevers or chills. HEENT: Denies any troubles with the vision or hearing. RESPIRATORY: No recent pneumonias. CARDIOVASCULAR: Denies chest pain or palpitations GI: No blood in stools or constipation. MUSCULOSKELETAL: Has occasional joint pain including back pain. NEURO: No seizure disorders or headaches. No recent stroke. PSYCH: No depression or suicidal ideation. GENITOURINARY: No active blood in urine. No urinary hesitancy. HEMATOLOGIC: No personal or family history of DVTs or pulmonary emboli. SKIN: No skin cancer. PHYSICAL EXAM: VITAL SIGNS: Afebrile vital signs stable GENERAL: Well-developed pleasant in no acute distress. HEENT: No scleral icterus. Extraocular movements grossly intact. Moist buccal mucosa. NECK: Supple without lymphadenopathy. CHEST: Unlabored respirations. Equal bilateral excursions. CARDIOVASCULAR: Regular rate regular rhythm rhythm. Distal 2+ pulses. ABDOMEN: Soft, nondistended. Tender along the epigastrium and right upper quadrant. MUSCULOSKELETAL: No clubbing, cyanosis, or edema. NEURO: Cranial nerves II to XII within normal limits. No focal or lateralizing signs. PSYCH: Alert and oriented to person, place and time. SKIN: Well-perfused good skin turgor. ASSESSMENT: 1. Epigastric and right upper quadrant abdominal pain 2. Chronic cholecystitis 3. Symptomatic gallstones. PLAN: 1. Will need a robotic cholecystectomy possible open. Benefits and risks were described. 2. Heparin for DVT prophylaxis 5000 units. 3. Antibiotic prophylaxis. 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 Last Myocardial Infarction Date:: 1997 History of Any Multi-Drug Resistant Organisms: None Reported Past Surgical History: Appendectomy, Heart Catheterization, Hysterectomy, Orthopedic Surgery Additional Past Surgical History / Comment(s): right hip replacement, cataract Past Anesthesia/Blood Transfusion Reactions: No Reported Reaction Smoking Status: Never smoker - Past Family History Mother Family Medical History: Cancer Additional Family Medical History / Comment(s): breast Father Family Medical History: Asthma Medications and Allergies Home Medications Medication Instructions Recorded Confirmed Type Aspirin 81 mg PO DAILY 07/24/13 10/25/20 History Lansoprazole 30 mg PO BID 07/24/13 10/25/20 History atenoloL 12.5 mg PO HS 07/24/13 10/25/20 History Atorvastatin [Lipitor] 20 mg PO HS 08/13/15 10/25/20 History Ascorbic Acid [Vitamin C with Elizabeth 100 mg PO DAILY 07/06/18 10/25/20 History Hips] Calcium Carbonate/Vitamin D3 1 tab PO BID 07/06/18 10/25/20 History [Calcium 500-Vit D3 5 Mcg (200 Iu)] Turmeric Root Extract [Turmeric] 1,053 mg PO DAILY 07/06/18 10/25/20 History Pioglitazone [Actos] 30 mg PO DAILY tab 07/10/18 10/25/20 Rx Enalapril Maleate [Vasotec] 2.5 mg PO HS 10/25/20 10/25/20 History Allergies Allergy/AdvReac Type Severity Reaction Status Date / Time nickel Allergy Rash/Hives Verified 11/01/20 06:48
[2020-11-01] MEDS ORDERED: HYDROmorphone 0.5 MG/0.5 ML SYRINGE IVP PRN (07:00)
[2020-11-01 07:24] LABS: Glucose,Whole Blood 122 mg/dL (75-99)
[2020-11-01 07:33] LABS: HCT 40.4 % (34.0-46.0); HGB 13.4 gm/dL (11.4-16.0); MCHC 33.2 g/dL (31.0-37.0); MCV 84.2 fL (80.0-100.0); Mean Platelet Volume 7.5; Platelet Count 217 k/uL (150-450); RDW 13.9 % (11.5-15.5); WBC 4.2 k/uL (3.8-10.6)
[2020-11-01] MEDS ORDERED: NEOSTIGMINE 1 MG/ML 10 ML VIAL ONE (07:39)
[2020-11-01] MEDS ORDERED: KETOROLAC 15 MG/ML 1 ML VIAL ONE (07:39)
[2020-11-01] MEDS ORDERED: SUCCINYLCHOLINE CHLORIDE 100 MG/5 ML SYR IV ONE (07:39)
[2020-11-01] MEDS ORDERED: ePHEDrine SULFATE/0.9% NACL/PF 50 MG/5 ML SYRINGE IV ONE (07:39)
[2020-11-01] MEDS ORDERED: PROPOFOL 10 MG/ML 20 ML VIAL IV ONE (07:39)
[2020-11-01] MEDS ORDERED: ROCURONIUM 10 MG/ML (5 ML VIAL) IV ONE (07:39)
[2020-11-01] MEDS ORDERED: LIDOCAINE 1% INJ 10MG/ML (20 ML MDV) ONE (07:39)
[2020-11-01] MEDS ORDERED: fentaNYL (PF) 50 MCG/ML 2 ML AMP ONE (07:39)
[2020-11-01] MEDS ORDERED: INDOCYANINE GREEN 25 MG VIAL IV ONE (07:39)
[2020-11-01] MEDS ORDERED: GLYCOPYRROLATE 0.2 MG/ML 2 ML VIAL ONE (07:39)
[2020-11-01] MEDS ORDERED: LIDOCAINE 1%-EPI 1:100,000 20 ML VIAL SQ ONE ×2 (07:57→08:00)
[2020-11-01] MEDS ORDERED: LACTATED RINGERS 1,000 ML IV ONE (08:35)
--- NOTE | 2020-11-01 08:45 | P.OP ---
Date of Procedure: 11/01/20 Description of Procedure: SURGEON: BARBARA MEAD MD PREOPERATIVE DIAGNOSES: 1. Symptomatic gallstones with chronic cholecystitis 2. Right upper quadrant abdominal pain 3. Diabetes type 2, [id number] 4. Hypertensive heart disease 5. Gastroesophageal reflux disease 6. Hyperlipidemia POSTOPERATIVE DIAGNOSES: 1. Symptomatic gallstones with chronic cholecystitis 2. Right upper quadrant abdominal pain 3. Diabetes type 2, [id number] 4. Hypertensive heart disease 5. Gastroesophageal reflux disease 6. Hyperlipidemia 7. Peritoneal adhesions, right upper quadrant OPERATION: 1. Robotic-assisted da Aurora Xi laparoscopic cholecystectomy, multiport with FIREFLY 2. Robotic-assisted da Aurora Xi laparoscopic lysis of adhesions ESTIMATED BLOOD LOSS: 5 mL. SPECIMENS REMOVED: Gallbladder. COMPLICATIONS: None. OPERATIVE FINDINGS: 1. Moderate scarring over body and infundibulum of the gallbladder with peritoneal adhesions, pericholecystic with features of chronic cholecystitis 2. Lower midline and right lower quadrant adhesions, omentum to abdominal wall INDICATIONS: The patient is a 85-year-old female who presents with symptomatic gallstones. Robotic assisted laparoscopic approach was described. Benefits and risks of the procedure including but not limited to bleeding, infection, injury to the biliary tree was described. Informed consent was obtained. DESCRIPTION OF PROCEDURE: Patient was brought to the operating room, placed in supine position. After general induction, the abdomen had been prepped and draped in standard sterile fashion. The robotic da Aurora XI system was primed. After a timeout protocol was performed, the patient had been prepped and draped in standard sterile fashion. The patient was injected with indocyanine green. A 5 mm 0 degrees laparoscopic trocar entry was performed along the left upper quadrant. The abdomen insufflated to 15 mmHg pressure which was tolerated well. Diagnostic laparoscopy demonstrated no injury to bowel viscera or mesentery. The liver surface was unremarkable. Next, two 8 mm robotic ports were placed along the right upper abdomen. The camera 8-mm port was maintained along the epigastrium. Another 8 mm port was placed along the left upper abdominal wall after exchanging the 5 mm port. Please note that the ports were placed at least 10 to 15 cm away from the target anatomy of the gallbladder. The robot was docked along the left lateral abdomen. The patient was repositioned in reverse Trendelenburg position. Using a grasper for arm 3, a grasper for arm 4, including hook cautery for arm 1, the robotic system was docked and primed as described. Instruments were interchanged by the administrative services assistant including hook cautery, Bovie cautery and clip appliers. I had sat at the console. The gallbladder was scarred with peritoneal adhesions. Lysis of adhesions was performed to free the gallbladder from the surrounding tissues. Next attention was brought to the infundibulum and cystic structures. The infundibulum and cystic duct were dissected free from surrounding tissues. The cystic duct was isolated. FIREFLY was used to identify the cystic artery and cystic structures. A critical view of safety was obtained. Large PLASTIC clips were used throughout the entire case. Using a clip drafting engineer, 2 clips were placed at the junction of the infundibulum and cystic duct. The cystic duct was divided between clips. Next, the cystic artery was similarly clipped and cauterized. Electro-Bovie cautery was used to remove the gallbladder from the hepatic fossa. Hemostasis was checked and found to be adequate. The robot was undocked. I re-scrubbed into the case. Using a 10 mm Endo Catch bag via the left upper quadrant incision, the specimen was removed from the abdominal cavity. All pneumoperitoneum instruments were evacuated from the abdominal cavity. The incisions were reapproximated using 4-0 Monocryl in an interrupted subcuticular fashion. Fascial defects were less than 8 mm in size. Please note along the trocar sites, local anesthetic was placed as a field block prior to insertion of all instruments. Liquid glue was applied to the skin. At the end of the procedure needle, sponge, and instrument count had been verified correct by the gate technician. The patient was transferred to postanesthesia care unit in stable condition. Intraoperative films were shared with the patient's family. Plan - Discharge Summary Discharge Rx Participant: Yes New Discharge Prescriptions: New Simethicone [Gas-X] 125 mg PO AC-TID PRN #20 cap PRN Reason: Pain Ibuprofen [Motrin] 600 mg PO Q8HR PRN #30 tab PRN Reason: Pain Acetaminophen Tab [Tylenol Tab] 1,000 mg PO Q6HR PRN #30 tablet PRN Reason: Pain Continue Lansoprazole 30 mg PO BID atenoloL 12.5 mg PO HS Aspirin 81 mg PO DAILY Atorvastatin [Lipitor] 20 mg PO HS Calcium Carbonate/Vitamin D3 [Calcium 500-Vit D3 5 Mcg (200 Iu)] 1 tab PO BID Ascorbic Acid [Vitamin C with Elizabeth Hips] 100 mg PO DAILY Pioglitazone [Actos] 30 mg PO DAILY tab Enalapril Maleate [Vasotec] 2.5 mg PO HS Discontinued Turmeric Root Extract [Turmeric] 1,053 mg PO DAILY Discharge Medication List Aspirin 81 mg PO DAILY 07/24/13 [History] Lansoprazole 30 mg PO BID 07/24/13 [History] atenoloL 12.5 mg PO HS 07/24/13 [History] Atorvastatin [Lipitor] 20 mg PO HS 08/13/15 [History] Ascorbic Acid [Vitamin C with Elizabeth Hips] 100 mg PO DAILY 07/06/18 [History] Calcium Carbonate/Vitamin D3 [Calcium 500-Vit D3 5 Mcg (200 Iu)] 1 tab PO BID 07/06/18 [History] Pioglitazone [Actos] 30 mg PO DAILY tab 07/10/18 [Rx] Enalapril Maleate [Vasotec] 2.5 mg PO HS 10/25/20 [History] Acetaminophen Tab [Tylenol Tab] 1,000 mg PO Q6HR PRN #30 tablet 11/01/20 [Rx] Ibuprofen [Motrin] 600 mg PO Q8HR PRN #30 tab 11/01/20 [Rx] Simethicone [Gas-X] 125 mg PO AC-TID PRN #20 cap 11/01/20 [Rx] Follow up Appointment(s)/Referral(s): Barbara Mead MD [STAFF PHYSICIAN] - 11/05/20 Patient Instructions/Handouts: Low Fat Diet (DC), Laparoscopic Cholecystectomy (DC), *Surgery [facility] - Managing Your Pain After Surgery Without Opioids Activity/Diet/Wound Care/Special Instructions: No lifting over 10 pounds in 2 weeks until Nov 15. May shower. No bath tub soaks for two weeks until Nov 15 Diet as tolerated. No driving while on narcotics. Use Tylenol and ibuprofen or Aleve scheduled for the next 24-48 hours for best pain relief. Use ice along incisions for today to prevent swelling. For today, avoid high fat foods Discharge Disposition: HOME SELF-CARE
[2020-11-01 08:53] VITALS: TEMP 96.8
[2020-11-01 09:14] LABS: Glucose,Whole Blood 181 mg/dL (75-99)
[2020-11-01 09:24] VITALS: RESP 16
[2020-11-01 10:11] VITALS: BP 132/72; PULSE 72
== END 2020-11-01 10:18 | disposition home or self-care (01) ==
LOC: OR 06:26
PROVIDERS: ATTEND Surgery Plastic and Reconstructive Surgery
DX: K80.10 Calculus of gallbladder with chronic cholecystitis without obstruction (principal); I11.9 Hypertensive heart disease without heart failure; E11.36 Type 2 diabetes mellitus with diabetic cataract; I25.2 Old myocardial infarction; E78.5 Hyperlipidemia, unspecified; K21.9 Gastro-esophageal reflux disease without esophagitis; K58.9 Irritable bowel syndrome, unspecified; K66.0 Peritoneal adhesions (postprocedural) (postinfection); M19.90 Unspecified osteoarthritis, unspecified site; Z79.82 Long term (current) use of aspirin; Z79.84 Long term (current) use of oral hypoglycemic drugs; Z90.49 Acquired absence of other specified parts of digestive tract; Z96.641 Presence of right artificial hip joint; Z79.899 Other long term (current) drug therapy
CPT/HCPCS: 47563; 88304; 85027; J1100; J2710; J0690; J2405; J2001; J3010; J1885; J0330; J2704; J1644

== ENCOUNTER → 2021-03-20 | Outpatient (CLI) | payer MEDICARE ==
--- NOTE | 2021-03-20 17:03 | MR ---
EXAMINATION TYPE: MR knee RT wo con DATE OF EXAM: 03/20/2021 COMPARISON: Plain film 02/11/2021 HISTORY: Right knee pain. TECHNIQUE: Multiplanar, multisequence imaging of the right knee is performed without IV contrast. FINDINGS: MEDIAL MENISCUS: Anterior and posterior horns are intact without tear. LATERAL MENISCUS: Anterior and posterior horns are intact without tear. CRUCIATE LIGAMENTS: The anterior and posterior cruciate ligaments are intact and unremarkable. COLLATERAL LIGAMENTS: Increased signal associated with the popliteus tendon may indicate strain EXTENSOR MECHANISM: Visualized quadriceps and patellar tendons are intact. 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 There is no cortical destruction. Some linear low signal on T1 with some a ssociated intermediate signal extending in the subcutaneous cortical region with corresponding fat de nsity, some increased signal on T2-weighted sequences is noted at this level. There is no soft tissue mass. OTHER: Subcutaneous edema changes are present. Cystic focus is present posterior to the proximal fem ur and posterior tibia is dumbbell shaped measuring 2 cm x 8 mm x 15 mm which may extend from the lauren nt space IMPRESSION: There is osteoarthritis. Findings in the proximal tibia posteriorly show nonaggressive approach, bárbara elate for possible remote history of trauma, findings may be related to some subcortical fluid collec tion. Additional findings above.
== END | disposition home or self-care (01) ==
LOC: RADMRIMAIN 12:57
PROVIDERS: ATTEND Orthopaedic Surgery
DX: M17.11 Unilateral primary osteoarthritis, right knee (principal); M94.261 Chondromalacia, right knee